=== PATIENT | male | born 1940 | race Caucasian/White ===

== ENCOUNTER 2016-09-06 23:17 | Inpatient (IN) | payer OTHER ==
[~2016-09-06] VITALS: Ht 188 cm; Wt 101.3 kg
[~2016-09-06 23:17] MED LIST: ALLO300T2 PO; ASPI81TA28 PO; CHOL100027 PO; CRS20 PO; FURO40TA3 PO; HYDR-5688 PO; IPRA1AER2 INH; ISOS60TA25 PO; METO-217 PO; MONT1TAB3 PO; NRN300 PO; NSNN50; PRD5 PO; RANI150C4 PO; ULT50X PO; WARF2TAB8 PO
[2016-09-06] MEDS ORDERED: SODIUM CHLORIDE 0.9% 1000ML 1,000 ML IV STA (23:47)
[2016-09-07] VITALS (17 sets, daily range): BP systolic 110–156; BP diastolic 65–87; PULSE 69–85; TEMP 36.3–36.9; O2SAT 91–96; Ht 188 cm; Wt 101.3 kg
[2016-09-07 00:03] LABS: HEMATOCRIT 40.5 % (42-52); MEAN CORPUSCULAR HEMOGLOBIN 28.9 pg (25-34); MEAN CORPUSCULAR HGB CONC 33.6 g/dl (32-36); RED BLOOD COUNT 4.71 M/uL (4.7-6.1)
[2016-09-07 00:05] LABS: ISTAT CREATININE 1.3 mg/dl (0.6-1.3); ISTAT HEMOGLOBIN 13.3 g/dl (14.0-18.0); ISTAT IONIZED CALCIUM 1.2 mmol/l (1.12-1.32)
[2016-09-07] MEDS ORDERED: GABA800T PO (00:14)
[2016-09-07 00:15] LABS: URINE APPEARANCE CLEAR (CLEAR); URINE BILIRUBIN NEG (NEG); URINE COLOR YELLOW; URINE EPITHELIAL CELL AUTO >30 /lpf (0-5); URINE NITRITE NEG (NEG); URINE PH 6.5 (4.5-7.5); URINE SPECIFIC GRAVITY 1.015 (1.000-1.030); UROBILINOGEN NEG (NEG); ZZUR CULT IF INDIC CLEAN CATCH NO
[2016-09-07] MEDS ORDERED: OPTIRAY 320 IV PRN (00:15)
[2016-09-07] MEDS ORDERED: GABA-113 PO (00:18)
[2016-09-07 00:20] LABS: MANUAL MICROSCOPIC REQUIRED? NO; REVIEW REQ? YES
[2016-09-07 00:23] LABS: MEAN PLATELET VOLUME 9.9 fL (7.4-10.4); PLATELET COUNT 99 K/uL (130-400)
[2016-09-07 00:24] LABS: BUN/CREATININE RATIO 15.9 (10-20); CALCIUM 8.9 mg/dl (8.5-10.1); COMPLETE YES; CREATININE 1.4 mg/dl (0.60-1.40); EOS % 0.6 %; IG% 0.5 %; MONO % 8.9 %; PLT ESTIMATE DECREASED; POTASSIUM 3.5 mmol/L (3.5-5.1)
[2016-09-07 00:30] LABS: CKMB/CK RATIO 2.4 (0-3.0)
[2016-09-07 01:56] LABS: INR 1.7 (0.9-1.1); PARTIAL THROMBOPLASTIN RATIO 1.4; PROTHROMBIN TIME (PATIENT) 18.7 SECONDS (9.0-12.0)
[2016-09-07] MEDS ORDERED: CEFOXITIN SOD 2 GM VIAL IV STA (03:50)
[2016-09-07] MEDS ORDERED: ACETAMINOPHEN 325 MG TAB PO PRN ×2 (04:45→14:30)
[2016-09-07] MEDS ORDERED: MoRPHine SULFATE 2 MG/ML CARP IV PRN (04:45)
[2016-09-07] MEDS ORDERED: ONDANSETRON INJ 2 MG/ML 2 ML VIAL IV PRN ×2 (04:45→12:15)
[2016-09-07] MEDS ORDERED: MAGNESIUM HYDROXIDE SUSP 30 ML UDC PO PRN (04:45)
[2016-09-07] MEDS ORDERED: ALUMINUM/MAGNESIUM/SIMETH (MAALOX MAX) 30 ML UDC PO PRN (04:45)
[2016-09-07] MEDS ORDERED: POLYETHYLENE (MIRALAX) 17 GM PACK PO PRN (04:45)
--- NOTE | 2016-09-07 04:50 | History and Physical ---
History & Physical Date & Time of Service: Sep 07, 2016 at 04:40 Chief Complaint: Pain In Stomach Primary Care Physician: Rasheed Wiseman M.D. History of Present Illness Source: patient, clinic records, hospital records This is a 76 year old male with PMH of CAD s/p stents, hx. of complete heart block s/p PPM, hx. of atrial fibrillation on anticoagulation, interstitial lung disease on chronic prednisone, HTN presents with severe epigastric and right upper quadrant abdominal pain that began at about 5PM on 09/06/16; after eating a meal; states that the pain was very severe; he tried to change positions for improvement, but it did not work; to the point where he had to come to the hospital; on the way to the hospital, he states that the pain started subsiding on its own; upon presentation to the ER, his pain had subsided completely; lab work showed an increase in his lipase, RUQ U/S was done; which showed probably acute cholecystitis. Patient feels much better currently, with no symptoms to note. Past Medical/Surgical History Medical Problems: (1) Abdominal aortic aneurysm Status: Chronic (2) Benign hypertension Status: Chronic (3) CKD (chronic kidney disease), stage III Status: Chronic (4) Coronary artery disease Permanent Comment: CABG 1990, PCI 2010, echo 07/16/13 LVEF 55-60%, neg nuclear stress 10/02/13 Status: Chronic (5) Diverticular disease of colon Status: Chronic (6) Diverticulitis Status: Resolved (7) Dyslipidemia Status: Chronic (8) Gout Status: Chronic (9) History of DVT of lower extremity Status: Chronic (10) Osteoarthritis Status: Chronic (11) Pacemaker Status: Chronic (12) Spinal stenosis of lumbar region Status: Chronic Surgical Problems: (1) Hx of decompressive lumbar laminectomy Permanent Comment: Dr. Monique 11/28/13 Status: Chronic (2) Status post cardiac catheterization Permanent Comment: 2010 Status: Chronic (3) Status post cardiac pacemaker procedure Status: Chronic (4) Status post coronary artery bypass grafting Permanent Comment: 1997 Status: Chronic (5) Status post coronary artery stent placement Status: Chronic Family History FH: asthma FATHER FH: coronary artery disease FATHER BROTHER FH: pancreatic cancer MOTHER Social History Smoking Status: Never Smoker Marital Status: Occupational Status: retired Immunizations History of Influenza Vaccine: Yes History of Tetanus Vaccine?: Yes History of Pneumococcal: Yes History of Hepatitis B Vaccine: Yes Allergies Coded Allergies: No Known Allergies (Verified , 09/07/16) Home Medications Scheduled Allopurinol (Zyloprim), 300 MG PO DAILY Aspirin (Aspirin Ec), 81 MG PO m/w/ Cholecalciferol (Vitamin D 1000 Unit), 2,000 INTER.UNIT PO DAILY Furosemide (Lasix), 20 MG PO DAILY Gabapentin (Neurontin), 300 MG PO TID Ipratropium-Albuterol (Combivent Respimat), 1 PUFFS INH QID Isosorbide Mononitrate Ext Rel (Imdur Ext Rel), 60 MG PO QAM Metoprolol Succinate (Toprol Xl), 25 MG PO HS Montelukast Sodium (Singulair), 10 MG PO DAILY Prednisone (Prednisone), 2.5 MG PO DAILY Ranitidine Hcl (Ranitidine Hcl), 150 MG PO HS Rosuvastatin Calcium (Crestor), 40 MG PO HS Warfarin Sod (Jantoven), 2 MG PO DAILY Review of Systems Constitutional: No chills, No fever, No weakness Respiratory: No cough, No dyspnea on exertion, No shortness of breath, No sputum Cardiovascular: No chest pain, No edema, No palpitations Abdomen: + pain (RUQ/epigastric; subsiding), No GI bleeding, No constipation, No diarrhea, No nausea, No vomiting Genitourinary - Male: No dysuria, No hematuria, No urinary frequency, No urinary urgency Neurologic: No numbness/tingling Psychiatric: No depression symptoms Endocrine: No fatigue Hematologic / Lymphatic: No abnormal bleeding/bruising Integumentary: No rash Allergic / Immunologic: No environmental allergies, No seasonal allergies Physical Exam Vital Signs Date Time Temp Pulse Resp B/P Pulse Ox O2 Delivery O2 Flow Rate FiO2 09/07/16 03:46 73 16 115/69 97 Room Air 09/07/16 02:18 78 16 119/68 96 Room Air 09/07/16 00:45 72 16 120/74 96 Room Air 09/06/16 23:50 72 09/06/16 23:30 36.4 76 20 116/72 94 Room Air General Appearance: no apparent distress Head: normocephalic, atraumatic Eyes: normal inspection ENT: hearing grossly normal Neck: supple Respiratory/Chest: lungs clear, normal breath sounds, no respiratory distress, no accessory muscle use, + pertinent finding (+pacemaker, left chest wall) Cardiovascular: regular rate, rhythm, no edema, no murmur Abdomen/GI: normal bowel sounds, soft, + tenderness (mild tenderness to deep palpation) Extremities/Musculoskelatal: normal capillary refill, no pedal edema Neurologic/Psych: no motor/sensory deficits, alert, normal mood/affect Skin: normal color Lymphatic: no adenopathy Diagnostics Laboratory Results Results Past 24 Hours Test 09/06/16 23:45 09/06/16 23:48 Range/Units White Blood Count 6.50 4.8-10.8 K/uL Red Blood Count 4.71 4.7-6.1 M/uL Hemoglobin 13.6 14.0-18.0 g/dL Hematocrit 40.5 42-52 % Mean Corpuscular Volume 86.0 80-100 fL Mean Corpuscular Hemoglobin 28.9 25-34 pg Mean Corpuscular Hemoglobin Concent 33.6 32-36 g/dl Platelet Count 99 130-400 K/uL Mean Platelet Volume 9.9 7.4-10.4 fL Neutrophils (%) (Auto) 70.0 % Lymphocytes (%) (Auto) 20.0 % Monocytes (%) (Auto) 8.9 % Eosinophils (%) (Auto) 0.6 % Basophils (%) (Auto) 0.0 % Neutrophils # (Auto) 4.55 1.4-6.5 K/uL Lymphocytes # (Auto) 1.30 1.2-3.4 K/uL Monocytes # (Auto) 0.58 0.11-0.59 K/uL Eosinophils # (Auto) 0.04 0-0.5 K/uL Basophils # (Auto) 0.00 0-0.2 K/uL RDW Standard Deviation 51.5 36.4-46.3 fL RDW Coefficient of Variation 16.4 11.5-14.5 % Immature Granulocyte % (Auto) 0.5 % Immature Granulocyte # (Auto) 0.03 0.00-0.02 K/uL Platelet Estimate DECREASED Prothrombin Time 18.7 9.0-12.0 SECONDS Prothromb Time International Ratio 1.7 0.9-1.1 Activated Partial Thromboplast Time 35.3 21.0-31.0 SECONDS Partial Thromboplastin Ratio 1.4 Urine Color YELLOW Urine Appearance CLEAR CLEAR Urine pH 6.5 4.5-7.5 Urine Specific [place] 1.015 1.000-1.030 Urine Protein 1+ NEG Urine Glucose (UA) NEG NEG Urine Ketones NEG NEG Urine Occult Blood TRACE NEG Urine Nitrite NEG NEG Urine Bilirubin NEG NEG Urine Urobilinogen NEG NEG Urine Leukocyte Esterase NEG NEG Urine WBC (Auto) 1-5 0-5 /hpf Urine RBC (Auto) 0-4 0-4 /hpf Urine Hyaline Casts (Auto) 1-5 0-5 /lpf Urine Epithelial Cells (Auto) >30 0-5 /lpf Urine Bacteria (Auto) NEG NEG Urine Renal Epithelial Cells 0-5 /lpf Sodium Level 143 136-145 mmol/L Potassium Level 3.5 3.5-5.1 mmol/L Chloride Level 104 98-107 mmol/L Carbon Dioxide Level 29 21-32 mmol/L Anion Gap 10.0 20.0 16-25 mmol/L Blood Urea Nitrogen 22 7-18 mg/dl Creatinine 1.40 0.60-1.40 mg/dl Est Creatinine Clear Calc Drug Dose 56.2 ml/min Estimated GFR () 55.8 Estimated GFR (Non- 48.1 BUN/Creatinine Ratio 15.9 10-20 Random Glucose 200 70-99 mg/dl Calcium Level 8.9 8.5-10.1 mg/dl Total Bilirubin 1.0 0.2-1 mg/dl Direct Bilirubin 0.4 0-0.2 mg/dl Aspartate Amino Transf (AST/SGOT) 23 15-37 U/L Alanine Aminotransferase (ALT/SGPT) 24 12-78 U/L Alkaline Phosphatase 66 45-117 U/L Total Creatine Kinase 174 39-308 U/L Creatine Kinase MB 4.2 0.5-3.6 ng/ml Creatine Kinase MB Ratio 2.4 0-3.0 Troponin I 0.018 0-0.045 ng/ml Total Protein 7.0 6.4-8.2 gm/dl Albumin 3.5 3.4-5.0 gm/dl Lipase 5554 73-393 U/L Bedside Hemoglobin 13.3 14.0-18.0 g/dl Bedside Hematocrit 39 42-52 % Bedside Sodium 141 135-144 mEq/L Bedside Potassium 3.4 3.3-5.0 mEq/L Bedside Chloride 100 101-112 mEq/L Bedside Total CO2 26 24-31 mEq/l Bedside Blood Urea Nitrogen 23 7-18 mg/dl Bedside Creatinine 1.3 0.6-1.3 mg/dl Bedside Glucose (other) 199 70-99 mg/dl Bedside Ionized Calcium (Brandi) 1.20 1.12-1.32 mmol/l Diagnostic Radiology RUQ U/S = concerning for acute cholecystitis EKG ventricularly paced rhythm Impression Assessment and Plan This is a 76 year old male with PMH of CAD s/p stents, hx. of complete heart block s/p PPM, hx. of atrial fibrillation on anticoagulation, interstitial lung disease on chronic prednisone, HTN presents with severe epigastric and right upper quadrant abdominal pain Acute Gallstone Pancreatitis Acute Cholecystitis -->likely from a gallstone in the CBD; which now seems to have passed -->RUQ U/S showing probably acute cholecystitis -->lipase > 5000 -->severe pain has now subsided without medication -->will keep patient NPO for now -->IVFs -->received abx. in the ER -->general surgery consultation for further input Hx. of Atrial Fibrillation s/p PPM -->hold Coumadin for now -->INR = 1.7; will await gen surg input prior to reversing this -->hold ASA for now CAD s/p stenting -->continue b-emerson, statin -->hold ASA for now secondary to poss. surgery HTN -->BP controlled, continue home medications DVT ppx -->SCDs FULL CODE VTE Prophylaxis VTE Risk Assessment Done? Y/N: Yes Risk Level: High
[2016-09-07] MEDS: SODIUM CHLORIDE 0.9% 1000ML 1,000 ML IV SCH ×2 (05:34→15:30)
--- NOTE | 2016-09-07 06:45 | EMERGENCY ROOM VISIT NOTE ---
History Report prepared by Sheri: Eliud Sanchez Under the Supervision of: Dr. Omid Baker M.D. First contact with patient: 23:44 Chief Complaint: ABDOMINAL PAIN Stated Complaint: PAIN IN STOMACH History of Present Illness The patient is a 76 year old male who presents to the Emergency Room with complaints of improving pain of the right middle abdomen since earlier tonight. The patient was laying down after dinner when the pain began. He was also reportedly nauseous and diaphoretic en route which are now both resolved. The patient denies chest pain. He has never had pain like this before. The patient was in the ED with shingles one month ago over the same general area, however the pain was different. He had a CT scan at that time. The patient has a history of aortic aneurysm. He had an appointment with his physician this morning, which was rescheduled for October. Source of History: patient Onset: tonight Position: abdomen (right middle) Timing: other (improving) Modifying Factors (Worsening): other (laying down) Associated Symptoms: + diaphoresis, + nausea, No chest pain Review of Systems See HPI for pertinent positives & negatives. A total of 10 systems reviewed and were otherwise negative. Past Medical & Surgical Medical Problems: (1) Abdominal aortic aneurysm (2) Acute gallstone pancreatitis (3) Benign hypertension (4) CKD (chronic kidney disease), stage III (5) Coronary artery disease (6) Diverticular disease of colon (7) Diverticulitis (8) Dyslipidemia (9) Gout (10) History of DVT of lower extremity (11) Osteoarthritis (12) Pacemaker (13) Spinal stenosis of lumbar region Surgical Problems: (1) Hx of decompressive lumbar laminectomy (2) Status post cardiac catheterization (3) Status post cardiac pacemaker procedure (4) Status post coronary artery bypass grafting (5) Status post coronary artery stent placement Family History FH: asthma FATHER FH: coronary artery disease FATHER BROTHER FH: pancreatic cancer MOTHER Social History Smoking Status: Never Smoker Alcohol Use: occasionally Marital Status: Occupation Status: retired Current/Historical Medications Scheduled Allopurinol (Zyloprim), 300 MG PO DAILY Aspirin (Aspirin Ec), 81 MG PO // Cholecalciferol (Vitamin D 1000 Unit), 2,000 INTER.UNIT PO DAILY Furosemide (Lasix), 20 MG PO DAILY Gabapentin (Neurontin), 300 MG PO TID Ipratropium-Albuterol (Combivent Respimat), 1 PUFFS INH QID Isosorbide Mononitrate Ext Rel (Imdur Ext Rel), 60 MG PO QAM Metoprolol Succinate (Toprol Xl), 25 MG PO HS Montelukast Sodium (Singulair), 10 MG PO DAILY Prednisone (Prednisone), 2.5 MG PO DAILY Ranitidine Hcl (Ranitidine Hcl), 150 MG PO HS Rosuvastatin Calcium (Crestor), 40 MG PO HS Warfarin Sod (Jantoven), 2 MG PO DAILY Allergies Coded Allergies: No Known Allergies (Verified , 09/07/16) Physical Exam Vital Signs Date Time Temp Pulse Resp B/P Pulse Ox O2 Delivery O2 Flow Rate FiO2 09/07/16 03:46 73 16 115/69 97 Room Air 09/07/16 02:18 78 16 119/68 96 Room Air 09/07/16 00:45 72 16 120/74 96 Room Air 09/06/16 23:50 72 09/06/16 23:30 36.4 76 20 116/72 94 Room Air Physical Exam GENERAL: Patient is well appearing and in mild distress. HEENT: No acute trauma, normocephalic atraumatic, mucous membranes moist, no nasal congestion, no scleral icterus. NECK: No stridor, no adenopathy, no meningismus, trachea is midline. LUNGS: No dyspnea. Clear to auscultation and equal bilaterally. No wheeze, no rhonchi. HEART: Regular rate and rhythm. No murmurs, rubs, gallops appreciated. ABDOMEN: Soft, nontender, bowel sounds positive, no masses appreciated, no peritonitis. BACK: No midline tenderness, no CVA tenderness EXTREMITIES: Normal motion all extremities, no cyanosis, no edema. NEUROLOGIC: Alert and oriented, no acute motor or sensory deficits, no focal weakness, cranial nerves grossly intact. SKIN: No rash, no jaundice, no diaphoresis. Medical Decision & Procedures ER Provider Diagnostic Interpretation: CT and US radiology results and stated below per my review and radiologist interpretation: CTA Chest: Compared to 05/03/16. No PE or aortic dissection. Redemonstrated cardiomegaly and CAD with pacer device. Right greater than left lung interstitial thickening again noted. Improved nodular infiltrates in the interval. Redemonstrated 4 mm right middle lobe nodule on series 3 image 33. Stable enlarged pretracheal lymph node. CTA Abdomen & Pelvis: Compared to 07/25/16. There is a stable 4 cm fusiform infrarenal abdominal aortic aneurysm. No evidence of rupture. Interval development of a hazy gallbladder wall, potentially edematous. No radiopaque stone. Consider US. Renal atrophy and scarring without obstruction. Diverticulosis coli without diverticulitis. Normal appendix. No bowel obstruction. Radiologist: Brandon Davila MD US RUQ: Mildly distended gallbladder with sludge and non-shadowing stones. Marked gallbladder wall thickening measuring up to 7.2 mm with pericholecystic fluid. Negative sonographic [place] sign. Findings are concerning for acute cholecystitis. The common bile duct is within normal limits measuring up to 4.6 mm. Mild hepatomegaly with slight increased echogenicity of the liver suggesting hepatic steatosis. The pancreas was not visualized secondary to bowel gas. Echogenic lesion within the right kidney measured 11 mm. This was not appreciated on recent CT and is of indeterminate clinical significance. Echogenic lesion with shadowing seen medial to the gallbladder which may represent calcified lymph node, vascular calcification or intraluminal contents within bowel. Radiologist: Kashmir Da Silva MD. Laboratory Results Test 09/06/16 23:45 09/06/16 23:48 RDW Standard Deviation 51.5 fL (36.4-46.3) RDW Coefficient of Variation 16.4 % (11.5-14.5) White Blood Count 6.50 K/uL (4.8-10.8) Red Blood Count 4.71 M/uL (4.7-6.1) Hemoglobin 13.6 g/dL (14.0-18.0) Hematocrit 40.5 % (42-52) Mean Corpuscular Volume 86.0 fL (80-100) Mean Corpuscular Hemoglobin 28.9 pg (25-34) Mean Corpuscular Hemoglobin Concent 33.6 g/dl (32-36) Platelet Count 99 K/uL (130-400) Mean Platelet Volume 9.9 fL (7.4-10.4) Neutrophils (%) (Auto) 70.0 % Lymphocytes (%) (Auto) 20.0 % Monocytes (%) (Auto) 8.9 % Eosinophils (%) (Auto) 0.6 % Basophils (%) (Auto) 0.0 % Neutrophils # (Auto) 4.55 K/uL (1.4-6.5) Lymphocytes # (Auto) 1.30 K/uL (1.2-3.4) Monocytes # (Auto) 0.58 K/uL (0.11-0.59) Eosinophils # (Auto) 0.04 K/uL (0-0.5) Basophils # (Auto) 0.00 K/uL (0-0.2) Immature Granulocyte % (Auto) 0.5 % Immature Granulocyte # (Auto) 0.03 K/uL (0.00-0.02) Platelet Estimate DECREASED Activated Partial Thromboplast Time 35.3 SECONDS (21.0-31.0) Partial Thromboplastin Ratio 1.4 Urine Color YELLOW Urine Appearance CLEAR (CLEAR) Urine pH 6.5 (4.5-7.5) Urine Specific [place] 1.015 (1.000-1.030) Urine Protein 1+ (NEG) Urine Glucose (UA) NEG (NEG) Urine Ketones NEG (NEG) Urine Occult Blood TRACE (NEG) Urine Nitrite NEG (NEG) Urine Bilirubin NEG (NEG) Urine Urobilinogen NEG (NEG) Urine Leukocyte Esterase NEG (NEG) Urine WBC (Auto) 1-5 /hpf (0-5) Urine RBC (Auto) 0-4 /hpf (0-4) Urine Hyaline Casts (Auto) 1-5 /lpf (0-5) Urine Epithelial Cells (Auto) >30 /lpf (0-5) Urine Bacteria (Auto) NEG (NEG) Urine Renal Epithelial Cells /lpf (0-5) Est Creatinine Clear Calc Drug Dose 56.2 ml/min Direct Bilirubin 0.4 mg/dl (0-0.2) Total Creatine Kinase 174 U/L (39-308) Creatine Kinase MB 4.2 ng/ml (0.5-3.6) Creatine Kinase MB Ratio 2.4 (0-3.0) Troponin I 0.018 ng/ml (0-0.045) Bedside Hemoglobin 13.3 g/dl (14.0-18.0) Bedside Hematocrit 39 % (42-52) Bedside Sodium 141 mEq/L (135-144) Bedside Potassium 3.4 mEq/L (3.3-5.0) Bedside Chloride 100 mEq/L (101-112) Bedside Total CO2 26 mEq/l (24-31) Bedside Blood Urea Nitrogen 23 mg/dl (7-18) Bedside Creatinine 1.3 mg/dl (0.6-1.3) Bedside Glucose (other) 199 mg/dl (70-99) Bedside Ionized Calcium (Brandi) 1.20 mmol/l (1.12-1.32) Laboratory results as reviewed by me. Medications Administered Medications (Trade) Dose Ordered Sig/Melita Route Start Time Stop Time Status Last Admin Dose Admin Sodium Chloride (Nss 1000ml) 1,000 ml @ 999 mls/hr Q1H1M STAT IV 09/06/16 23:47 09/07/16 00:47 DC 09/07/16 00:13 999 MLS/HR Cefoxitin Sodium (Mefoxin IV) 2,000 mg NOW STAT IV 09/07/16 03:50 09/07/16 03:51 DC 09/07/16 04:21 2,000 MG ECG Indication: abdominal pain Rate (beats per minute): 83 Rhythm: other (ventricular paced) Findings: no acute ischemic change, no ectopy ED Course 2344: The patient was evaluated in room A11b. A complete history and physical exam was performed. 2347: NSS 1000 ml @ 999 mls/hr. 0100: The patient is feeling better. He is stable at this time. 0135: The patient is still feeling alright. 0350: Mefoxin 2000 mg IV. 0355: Checked on the patient. Updated them on the findings. 0402: Discussed the case with Dr. Farias, [facility] [address] Hospitalist. The patient will be evaluated. Medical Decision Differential: Renal Colic, Pyelonephritis, Hydronephrosis, Appendicitis, Diverticulitis, Retroperitoneal Bleed/Infection, Aortic Pathology, MSK, Neurologic Pathology, amongst other pathologies entertained. 76 yr old male arrives with right flank/sided pain associated with nausea, lightheadedness and diaphoresis. Known AAA and given description of severity of symptoms went forward with CTA to rule out dissection/rupture. In mean time Lipase found to be very high though patient states no further symptoms. CT with evidence of GB abnormalities though no other acute injuries. LFTs OK. US shows concerning findings of acute cholecystitis. I suspect this was passed GB stone but given elevated Lipase and his US findings will need to come in for further monitoring and treatment. He is not septic and was stable. Patient comfortable and in no distress throughout ED stay. Consults Time Called: [phone] Consulting Physician: Carly Bravo Hospitalist Returned Call: [phone]: Discussed the case with Carly Bravo. The patient will be evaluated. Impression Primary Impression: Acute cholecystitis Additional Impression: Elevated lipase Scribe Attestation The scribe's documentation has been prepared under my direction and personally reviewed by me in its entirety. I confirm that the note above accurately reflects all work, treatment, procedures, and medical decision making performed by me. Departure Information Dispostion Being Evaluated By Hospitalist Referrals Rasheed Wiseman M.D. (PCP)
--- NOTE | 2016-09-07 07:37 | DIAGNOSTIC IMAGING REPORT ---
ABDOMINAL ULTRASOUND, RIGHT UPPER QUADRANT HISTORY: Right flank pain. Elevated lipase. COMPARISON: CT of the abdomen and pelvis July 25, 2016. FINDINGS: The liver is mildly enlarged and echogenic. No hepatic lesions are identified. There is no biliary ductal dilatation. There is sludge within the gallbladder. There may be nonshadowing stones within the gallbladder. There is moderate gallbladder wall thickening. No sonographic [place] sign was elicited. There is no right hydronephrosis. There is a 1.1 cm echogenic lesion within the upper pole of the right kidney. Incidental note is made of a 2.1 cm shadowing focus medial to the gallbladder which likely reflects a calcified peritoneal body when correlating with CT. The pancreas is obscured. IMPRESSION: 1. Sludge within the gallbladder with possible nonshadowing stones within the gallbladder. Moderate gallbladder wall thickening. The findings raise the possibility of acute cholecystitis. A hepatobiliary scan could be obtained as indicated. No sonographic Freeman's sign. 2. No biliary ductal dilatation. 3. 1.1 cm echogenic right renal lesion. This favors scarring or an angiomyolipoma. Electronically signed by: Chip Garza M.D. 09/07/2016 7:35 AM
--- NOTE | 2016-09-07 07:55 | DIAGNOSTIC IMAGING REPORT ---
CT ANGIOGRAM OF THE CHEST, ABDOMEN, AND PELVIS CLINICAL HISTORY: Chest abdominal pain. Known aortic aneurysm. COMPARISON STUDY: Noncontrast CT scan abdomen pelvis dated 07/25/2016 , outside chest CT May 03, 2016 TECHNIQUE: Before and following the IV administration of 116 mL of Optiray-320, CT angiogram of the chest, abdomen, and pelvis was performed from the thoracic inlet to the proximal femurs. Images are reviewed in the axial, sagittal, and coronal planes. IV contrast was administered without complication. Imaged portions of the thyroid gland are normal in appearance. MIP imaging was performed. CT DOSE: 2590.67 mGy.cm FINDINGS: CHEST: Thoracic aorta: The thoracic aorta is normal in course and caliber, noting standard 3-vessel arch anatomy. No aneurysm or dissection is seen. Pulmonary vasculature: The pulmonary trunk is normal in caliber. There are no filling defects in the main, lobar, or segmental pulmonary branches to suggest pulmonary embolus. HEART: There are postsurgical changes of midline sternotomy. The heart is enlarged. There are coronary artery calcifications. There is evidence for prior coronary artery bypass grafting. Lungs and pleural spaces: There is pulmonary emphysema. There is no lobar consolidation. There is interstitial thickening and septal edema. There is mosaic attenuation the lungs, likely secondary to areas of air trapping. There is a stable 4 mm right middle lobe pulmonary nodule as visualized in image #[id number] Mediastinum: There are enlarged mediastinal lymph nodes. There is a precarinal lymph node measuring 15 mm. Randa: There is no evidence of pathologic hilar adenopathy Axilla: Clear. ABDOMEN AND PELVIS: Liver: The contrast-enhanced liver is normal in size, contour, and attenuation. There is no intrahepatic biliary ductal dilatation. The hepatic veins and portal veins are patent. Gallbladder: There is gallbladder wall thickening/pericholecystic fluid. No calculi are visualized. Clinical correlation regards to acute cholecystitis is recommended. Spleen: Normal in size and attenuation. Pancreas: Unremarkable. Adrenal glands: Unremarkable. Kidneys: Both kidneys demonstrate lobular contours. No solid masses are visualized. There is no hydronephrosis. Bowel: There are no transition zones indicate bowel obstruction. There is extensive colonic diverticulosis. There are no acute peridiverticular inflammatory changes. Peritoneum: There is no intraperitoneal free air or abdominal ascites. Abdominal aorta: Diffuse atheromatous changes are present within the abdominal aorta. There is infrarenal abdominal aortic aneurysm measuring 3.9 cm in maximal diameter. There are no findings to indicate aortic rupture. There is no evidence of superior mesenteric, celiac, or renal artery stenosis. Adenopathy: None. Pelvic viscera: There is mild bladder wall thickening. Skeletal structures: There are postsurgical changes present within the lumbar spine. IMPRESSION: 1. No evidence of thoracic aortic aneurysm or dissection 2. Enlarged precarinal lymph node, unchanged from April 2016 3. Stable 4 mm right middle lobe pulmonary nodule 4. Emphysema and underlying interstitial lung disease. 5. Slight mosaic attenuation of the lungs likely secondary to air-trapping 6. Stable 3.9 cm infrarenal abdominal aortic aneurysm. No evidence of aortic rupture 7. No evidence of bowel obstruction. No evidence of free air 8. Diverticulosis. No evidence of acute diverticulitis 9. Suspected edematous gallbladder wall. Correlate clinically for acute cholecystitis. Gallbladder ultrasonography should be considered in follow-up. Electronically signed by: Jordon Parish M.D. 09/07/2016 7:53 AM
[2016-09-07 08:01] LABS: HEMATOCRIT 36.2 % (42-52); MEAN CELL VOLUME 86.4 fL (80-100); MEAN CORPUSCULAR HEMOGLOBIN 29.1 pg (25-34); MEAN CORPUSCULAR HGB CONC 33.7 g/dl (32-36); RED BLOOD COUNT 4.19 M/uL (4.7-6.1); WHITE BLOOD COUNT 4.14 K/uL (4.8-10.8)
[2016-09-07 08:09] LABS: INR 1.8 (0.9-1.1); PROTHROMBIN TIME (PATIENT) 19.3 SECONDS (9.0-12.0)
[2016-09-07 08:16] LABS: MEAN PLATELET VOLUME 11.7 fL (7.4-10.4); PLATELET COUNT 93 K/uL (130-400)
[2016-09-07 08:30] LABS: BUN/CREATININE RATIO 14.8 (10-20); CALCIUM 8.9 mg/dl (8.5-10.1); CREATININE 1.2 mg/dl (0.60-1.40); POTASSIUM 3.6 mmol/L (3.5-5.1)
[2016-09-07] MEDS: ISOSORBIDE MONONITRATE 60 MG TABCR PO SCH ×2 (09:00→10:17)
[2016-09-07] MEDS: IPRATROPIUM BROMIDE/ALBUTEROL respimat INH INH SCH ×4 (09:00→20:25)
[2016-09-07] MEDS: MONTELUKAST SOD 10 MG TAB PO SCH ×2 (09:00→10:17)
--- NOTE | 2016-09-07 09:04 | Pre-Operative Consultation ---
History General Date of Service: Sep 07, 2016. Stated Complaint: RUQ pain HPI HPI: The patient is a 76 year old male being seen at the request of Dr. Farias for possible acute cholecystitis in the setting of gallstone pancreatitis. He tells me he was told about his gallstones a few years ago when they were incidentally noted on imaging. They had not been causing any trouble at the time. About 1 day ago, he developed severe, constant, intense pain in the RUQ under his ribcage which started directly after eating. This did not radiate to his back, it was a 10/10 in intensity, associated with nausea but no vomiting or diarrhea. It continued to worsen and thus, he came to the ER. While getting in the car, the pain started to subside and has now resolved completely. ER evaluation revealed gallstone pancreatitis with a lipase over 5000 and imaging suggestive of acute cholecystitis. He has an extensive PMH most notable for a fib on coumadin, pacemaker placement for heart block ([facility]), prednisone usage for interstitial lung disease. He has undergone a quadruple CABG in the past. Has hypertension. Problem List Medical Problems: (1) Acute cholecystitis Status: Acute (2) Elevated lipase Status: Acute (3) Flank pain Status: Acute (4) Herpes zoster Status: Acute Medical & Surgical History Past Medical History: coronary artery disease, deep vein thrombosis, heart attack, hypertension, osteoarthritis, other (interstitial lung disease) Past Surgical History: angioplasty, coronary bypass surgery, hernia repair ( groin), orthopedic surgery (left elbow), pacemaker (for heart block) Family History Family History: no family history of gallbladder disease Social History Hx Tobacco Use In Past Year?: No (Quit 40 years ago) Smoking Status: Never Smoker Alcohol: occasionally Marital status: Occupation status: retired Immunizations Have You Had Influenza Vaccine: Yes Have You Had Tetanus Vaccine: Yes History of Pneumococcal: Yes History Hepatitis B Vaccine: Yes Allergies Allergies: Coded Allergies: No Known Allergies (Verified , 09/07/16) Medications Current Inpatient Medications Current Inpatient Medications Medications (Trade) Dose Ordered Sig/Melita Route Start Time Stop Time Status Last Admin Dose Admin Ioversol (Optiray 320) 100 ml UD PRN IV 09/07/16 00:15 09/11/16 00:14 Acetaminophen (Tylenol Tab) 650 mg Q4H PRN PO 09/07/16 04:45 10/07/16 04:44 Al Hydrox/Mg Hydrox/Simethicone (Maalox Max Susp) 15 ml Q4H PRN PO 09/07/16 04:45 10/07/16 04:44 Magnesium Hydroxide (Milk Of Magnesia Susp) 30 ml Q6H PRN PO 09/07/16 04:45 10/07/16 04:44 Polyethylene (Miralax Powder Packet) 17 gm DAILY PRN PO 09/07/16 04:45 10/07/16 04:44 Ondansetron HCl 4 mg 4 mg Q6H PRN IV 09/07/16 04:45 10/07/16 04:44 Sodium Chloride (Nss 1000ml) 1,000 ml @ 100 mls/hr Q10H IV 09/07/16 04:45 10/07/16 04:44 09/07/16 05:34 100 MLS/HR Morphine Sulfate (MoRPHine SULFATE INJ) 2 mg Q4 PRN IV 09/07/16 04:45 09/21/16 04:44 Albuterol/ Ipratropium (Combivent Respimat Inh) 1 puffs QID INH 09/07/16 09:00 10/07/16 08:59 Isosorbide Mononitrate (Imdur Ext Rel Tab) 60 mg QAM PO 09/07/16 09:00 10/07/16 08:59 Metoprolol Succinate (Toprol Xl Tab) 25 mg HS PO 09/07/16 21:00 10/07/16 20:59 Montelukast Sodium (Singulair Tab) 10 mg DAILY PO 09/07/16 09:00 10/07/16 08:59 Prednisone (PredniSONE TAB) 2.5 mg DAILY PO 09/07/16 09:00 10/07/16 08:59 Rosuvastatin Calcium (Crestor Tab) 40 mg HS PO 09/07/16 21:00 10/07/16 20:59 Review of Systems Review of Systems Constitutional: no symptoms reported Eyes: reports: no symptoms ENT: reports: no symptoms reported Cardiovascular: reports: no symptoms reported Respiratory: reports: no symptoms reported Gastrointestinal: see HPI Genitourinary - Male: reports: no symptoms Musculoskeletal: no symptoms reported Integumentary: no symptoms reported Neurologic: reports: no symptoms Psychiatric: reports: no symptoms Endocrine: no symptoms Hematologic / Lymphatic: other (on coumadin) Physical Exam Physical Exam General Appearance: + WD/WN, No distress Ears, Nose, Throat: + normal ENT inspection Neck: No abnormal inspection, No tracheal deviation Respiratory: No abnormal breath sounds, No accessory muscle use, No chest tenderness, No decreased breath sounds, No respiratory distress Cardiovascular: + other (pacemaker in place left upper chest), No JVD, No abnormal rate (sounds RRR currently) Abdomen: + tenderness (mild RUQ, no marshall's sign), No abnormal bowel sounds, No distension, No hepatomegaly, No hernia, No rebound Extremities: No abnormal range of motion, No deformity Neurologic/Psychiatric: No abnormal poultry vaccinator II-XII, No decreased LOC Skin Characteristics: No abnormal color Diagnostics Labs Labs Results Past 24 Hours Test 09/06/16 23:45 09/06/16 23:48 09/07/16 07:10 Range/Units White Blood Count 6.50 4.14 4.8-10.8 K/uL Red Blood Count 4.71 4.19 4.7-6.1 M/uL Hemoglobin 13.6 12.2 14.0-18.0 g/dL Hematocrit 40.5 36.2 42-52 % Mean Corpuscular Volume 86.0 86.4 80-100 fL Mean Corpuscular Hemoglobin 28.9 29.1 25-34 pg Mean Corpuscular Hemoglobin Concent 33.6 33.7 32-36 g/dl Platelet Count 99 93 130-400 K/uL Mean Platelet Volume 9.9 11.7 7.4-10.4 fL Neutrophils (%) (Auto) 70.0 % Lymphocytes (%) (Auto) 20.0 % Monocytes (%) (Auto) 8.9 % Eosinophils (%) (Auto) 0.6 % Basophils (%) (Auto) 0.0 % Neutrophils # (Auto) 4.55 1.4-6.5 K/uL Lymphocytes # (Auto) 1.30 1.2-3.4 K/uL Monocytes # (Auto) 0.58 0.11-0.59 K/uL Eosinophils # (Auto) 0.04 0-0.5 K/uL Basophils # (Auto) 0.00 0-0.2 K/uL RDW Standard Deviation 51.5 52.4 36.4-46.3 fL RDW Coefficient of Variation 16.4 16.5 11.5-14.5 % Immature Granulocyte % (Auto) 0.5 % Immature Granulocyte # (Auto) 0.03 0.00-0.02 K/uL Platelet Estimate DECREASED Prothrombin Time 18.7 19.3 9.0-12.0 SECONDS Prothromb Time International Ratio 1.7 1.8 0.9-1.1 Activated Partial Thromboplast Time 35.3 21.0-31.0 SECONDS Partial Thromboplastin Ratio 1.4 Urine Color YELLOW Urine Appearance CLEAR CLEAR Urine pH 6.5 4.5-7.5 Urine Specific [place] 1.015 1.000-1.030 Urine Protein 1+ NEG Urine Glucose (UA) NEG NEG Urine Ketones NEG NEG Urine Occult Blood TRACE NEG Urine Nitrite NEG NEG Urine Bilirubin NEG NEG Urine Urobilinogen NEG NEG Urine Leukocyte Esterase NEG NEG Urine WBC (Auto) 1-5 0-5 /hpf Urine RBC (Auto) 0-4 0-4 /hpf Urine Hyaline Casts (Auto) 1-5 0-5 /lpf Urine Epithelial Cells (Auto) >30 0-5 /lpf Urine Bacteria (Auto) NEG NEG Urine Renal Epithelial Cells 0-5 /lpf Sodium Level 143 145 136-145 mmol/L Potassium Level 3.5 3.6 3.5-5.1 mmol/L Chloride Level 104 112 98-107 mmol/L Carbon Dioxide Level 29 23 21-32 mmol/L Anion Gap 10.0 20.0 10.0 3-11 mmol/L Blood Urea Nitrogen 22 18 7-18 mg/dl Creatinine 1.40 1.20 0.60-1.40 mg/dl Est Creatinine Clear Calc Drug Dose 56.2 65.5 ml/min Estimated GFR () 55.8 67.2 Estimated GFR (Non- 48.1 58.0 BUN/Creatinine Ratio 15.9 14.8 10-20 Random Glucose 200 109 70-99 mg/dl Calcium Level 8.9 8.9 8.5-10.1 mg/dl Total Bilirubin 1.0 0.6 0.2-1 mg/dl Direct Bilirubin 0.4 0-0.2 mg/dl Aspartate Amino Transf (AST/SGOT) 23 21 15-37 U/L Alanine Aminotransferase (ALT/SGPT) 24 21 12-78 U/L Alkaline Phosphatase 66 54 45-117 U/L Total Creatine Kinase 174 39-308 U/L Creatine Kinase MB 4.2 0.5-3.6 ng/ml Creatine Kinase MB Ratio 2.4 0-3.0 Troponin I 0.018 0-0.045 ng/ml Total Protein 7.0 5.9 6.4-8.2 gm/dl Albumin 3.5 2.9 3.4-5.0 gm/dl Lipase 5554 1305 73-393 U/L Bedside Hemoglobin 13.3 14.0-18.0 g/dl Bedside Hematocrit 39 42-52 % Bedside Sodium 141 135-144 mEq/L Bedside Potassium 3.4 3.3-5.0 mEq/L Bedside Chloride 100 101-112 mEq/L Bedside Total CO2 26 24-31 mEq/l Bedside Blood Urea Nitrogen 23 7-18 mg/dl Bedside Creatinine 1.3 0.6-1.3 mg/dl Bedside Glucose (other) 199 70-99 mg/dl Bedside Ionized Calcium (Barndi) 1.20 1.12-1.32 mmol/l Globulin 3.0 2.5-4.0 gm/dl Albumin/Globulin Ratio 1.0 0.9-2 Lab Interpretation Lab Interpretation: labs were reviewed Diagnostic Radiology Diagnostic Radiology RUQ U/S showed gallstones/ sludge with findings c/w acute cholecystitis. Normal CBD size. Impression Assessment and Plan Assessment and Plan 76 yr old man with chronic steroid use, on coumadin with INR 1.8 admitted with gallstone pancreatitis and possible acute cholecystitis. His pain has resolved and lipase is down to just over 1000 today. Discussed my recommendation for laparoscopic cholecystectomy with IOC, possible open. Explained that with his medical comorbidities, it is quite possible he is masking an infected, ugly gallbladder. Possible need for open procedure with attendant increase in hospital stay (3-4 days) and recovery (4 wk minimum) reviewed. Discussed possible drain placement if concern for potential bile leak. Discussed potential need for ERCP following procedure if bile leak, retained stone found on IOC, or unable to do IOC and manifesting with signs of retained stone later. Risks of diarrhea, intolerance to foods, bleeding (increased due to need for anticoagulation afterwards), and infection also discussed. Consent was signed. I would like to take him to OR today. Will need 1 unit FFP as INR 1.8 (would prefer less than 1.6). Also, we need to find out what type of pacemaker he has. EKG shows a v paced rhythm. Attempting to page Dr. Farias and Dr. Brar (concrete stone finisher for [facility] cardiology).
--- NOTE | 2016-09-07 09:52 | Progress Note ---
Progress Note Cardiology attending: full consult dictated patient is a moderate risk for adverse perioperative cardiovascular event, pt is accepting or risk no need to delay cholecystectomy from cardiac standpoint will follow post-operatively
--- NOTE | 2016-09-07 11:28 | CARDIOLOGY CONSULTATION ---
DATE OF CONSULTATION: 09/07/2016 CONSULTATION REQUESTED BY: Dr. Denney. REASON FOR CONSULTATION: Preoperative risk assessment. HISTORY OF PRESENT ILLNESS: Mr. Gramajo is a very pleasant 76-year-old gentleman who normally follows with Miki Cunningham PA-C, of our cardiology practice. He presented to [facility] Emergency Department on the evening of 09/06/2016 with a complaint of severe abdominal pain. The patient states he was in his normal state of health yesterday when he ate dinner, afterwards he sat down, developed severe sharp stabbing right upper quadrant pain. His family brought him to [facility] where he was found to have acute cholecystitis and he was timely scheduled for cholecystectomy today. Otherwise, he states he is feeling well and his abdominal pain has resolved and he denies experiencing any chest pain. He was recently seen in the cardiology clinic on 08/30/2016 and at that time as well he denied any cardiac complaints. The patient is very active. He actually carries wood on a regular basis without issue. He denies any chest pain, shortness of breath, palpitations, lightheadedness, dizziness or syncope. He has been compliant with his medications and taking them as directed. PAST SURGICAL HISTORY: 1. Coronary bypass grafting surgery x3 with followup PCIs to vein grafts. 2. Medtronic dual-chamber permanent pacemaker placement. 3. Cataract surgery. 4. Hernia repair. 5. Spinal fusion. MEDICAL ILLNESSES: 1. Coronary artery disease, status post CABG and further PCI. 2. Persistent atrial fibrillation, rate controlled on chronic Coumadin therapy. 3. History of complete heart block, status post permanent pacemaker placement. 4. Abdominal aortic aneurysm. 5. Interstitial lung disease. 6. Hypertension. 7. Dyslipidemia. FAMILY HISTORY: Noncontributory. SOCIAL HISTORY: The patient is a former smoker, quit over 30 years ago. Denies any alcohol or recreational drug use. He is not , he lives at home with his girlfriend. REVIEW OF SYSTEMS: As per HPI. All other review of systems reviewed and negative at this time. ALLERGIES: No known drug allergies. MEDICATIONS AN OUTPATIENT: 1. Aspirin 81 mg daily. 2. Crestor 40 mg daily. 3. Lasix 20 mg daily. 4. Toprol-XL 50 mg at bedtime. 5. Imdur 60 mg daily. 6. Zantac b.i.d. 7. Singular daily. 8. Prednisone daily. PHYSICAL EXAMINATION: VITALS: Temperature 36.4, pulse 71, respiratory rate 12, blood pressure 132/68. GENERAL: Awake, alert, oriented x3, in no acute distress. HEENT: Normocephalic, atraumatic. Pupils equal, round and reactive to light and accommodation. Extraocular muscles intact. Anicteric sclerae. Moist mucous membranes. NECK: No JVD, no bruit. CARDIOVASCULAR: Regular. Positive S4. Normal S1 and S2. No S3. No murmurs or rubs. PULMONARY: Clear to auscultation bilaterally. No rales, rhonchi or wheezing. ABDOMEN: Bowel sounds x4, soft. No rebound, guarding or tenderness. No organomegaly. EXTREMITIES: No clubbing, cyanosis or edema. +2 pedal pulses bilaterally. SKIN: Warm and dry. TEST RESULTS: 2D echocardiogram performed 04/2016 was read as normal LV systolic function, EF 60-64%, moderate left atrial enlargement, mild aortic valve sclerosis without stenosis, mild mitral regurgitation, mild to moderate tricuspid regurgitation, pulmonary systolic pressure was 37 mmHg. A 12-lead EKG performed in the Emergency Department, independently reviewed at this time shows V-paced rhythm at 83 beats per minute. IMPRESSION: 1. Preop risk assessment prior to undergoing urgent cholecystectomy. 2. Coronary artery disease, status post coronary artery bypass graft and multiple percutaneous coronary interventions. 3. Normal left ventricular systolic function. 4. History of complete heart block, status post permanent pacemaker placement, pacer dependent. 5. Persistent atrial fibrillation, on chronic Coumadin therapy. 6. Interstitial lung disease. RECOMMENDATIONS: It was my pleasure to see Mr. Gramajo in consultation today. The patient was counseled. In terms of perioperative cardiovascular risk, I would place him at a moderate risk for any adverse perioperative cardiovascular event with his risk being approximately less than 5%. It was further explained that no further cardiac testing or intervention would further lower that risk. He states he understands, he is accepting of this risk and wishes to proceed. So I see no benefit from delaying from a cardiac standpoint. He is on Coumadin with an INR of 1.8 today. A unit of FFP has been ordered and will be given, and we will continue his Coumadin as well as all of his other outpatient medications postoperatively. Thank you very much for allowing me to participate in the care of your patient.
[2016-09-07] MEDS ORDERED: LACTATED RINGER'S 1000ML 1,000 ML IV PRN (12:10)
[2016-09-07] MEDS ORDERED: FENTANYL CITRATE INJ 50 MCG/1 ML 2 ML VIAL IV PRN (12:15)
[2016-09-07] MEDS ORDERED: HYDROmorphone INJ 1 MG/ML SYR IV PRN (12:15)
[2016-09-07] MEDS ORDERED: LIDOCAINE HCL 2% 2 ML VIAL (20MG/ML) ONE (12:22)
[2016-09-07] MEDS ORDERED: FENTANYL CITRATE INJ 50 MCG/1 ML 2 ML VIAL ONE ×2 (12:22→14:11)
[2016-09-07] MEDS ORDERED: ROCURONIUM BROMIDE 10 MG/ML 5 ML VIAL ONE (12:22)
[2016-09-07] MEDS ORDERED: MIDAZOLAM HCL 1 MG/ML 2ML VIAL ONE (12:22)
[2016-09-07] MEDS ORDERED: PROPOFOL IV EMULSION 10 MG/ML 20 ML VIAL IV ONE (12:22)
[2016-09-07] MEDS ORDERED: CEFOXITIN IV 2,000 MG in DEXTROSE 5% 50ML 50 ML IV ONE (12:30)
[2016-09-07] MEDS ORDERED: ONDANSETRON INJ 2 MG/ML 2 ML VIAL ONE (13:04)
[2016-09-07] MEDS ORDERED: DEXAMETHASONE SOD INJ 4 MG/ML VIAL ONE (13:04)
[2016-09-07] MEDS ORDERED: GLYCOPYRROLATE INJ 0.2 MG/ML VIAL ONE (13:18)
[2016-09-07] MEDS ORDERED: NEOSTIGMINE METHYLSULFATE 5 MG/5 ML SYR ONE (13:18)
[2016-09-07] MEDS ORDERED: CONRAY 60% 50 ML VIAL INSTIL ONE (14:06)
[2016-09-07] MEDS ORDERED: BUPIVACAINE 0.5 % 5 MG/1 ML MPF 30ML VIAL INJ ONE (14:06)
[2016-09-07] MEDS ORDERED: [UNRECOGNIZED DRUG - OTHER] TOP ONE (14:07)
[2016-09-07] MEDS ORDERED: SURGICEL ABSORB HEMOSTAT 2IN X 14IN TOP ONE (14:08)
[2016-09-07] MEDS ORDERED: COLLAGEN HEMOSTAT ABSORBABLE TOP ONE (14:08)
--- NOTE | 2016-09-07 14:23 | DIAGNOSTIC IMAGING REPORT ---
CHOLANGIOGRAM O.R. CLINICAL HISTORY: Cholecystectomy COMPARISON STUDY: Gallbladder ultrasound dated 09/07/2016 FLUOROSCOPY TIME: 13 seconds. FINDINGS: A single intraoperative fluoroscopic spot image is provided for interpretation. There is contrast within the common bile duct. No filling defects are visualized. There is free flow into the duodenum. The intrahepatic biliary tree is poorly delineated. IMPRESSION: No common bile duct filling defects identified Electronically signed by: Jordon Parish M.D. 09/07/2016 2:20 PM
[2016-09-07] MEDS ORDERED: OXYCODONE/ACETAMINOPHEN 5-325 TAB PO PRN (14:30)
--- NOTE | 2016-09-07 14:30 | [facility] Post Operative Brief Note ---
Immediate Operative Summary Operative Date Sep 07, 2016. Pre-Operative Diagnosis Acute cholecystitis with gallstone pancreatitis Post-Operative Diagnosis Acute cholecystitis with gallstone pancreatitis Procedure(s) Performed Laparoscopic Cholecystectomy with Intraoperative Cholangiogram Surgeon Dr. Fadumo Denney Electrical Mechanic Surgeon(s) None Estimated Blood Loss 30ml Findings distended, inflamed, very oozy gallbladder with multiple small feeding vessels in addition to cystic artery. Bleeding from one of the small vessels requiring clips. Surgicell used. IOC normal. Specimens A. Gallbaladder and Contents Drains none Anesthesia GET Complication(s) None Disposition Recovery Room / PACU
--- NOTE | 2016-09-07 14:55 | OPERATIVE REPORT ---
DATE OF OPERATION: 09/07/2016 PREOPERATIVE DIAGNOSES: Gallstone pancreatitis, acute cholecystitis. POSTOPERATIVE DIAGNOSIS: Same. OPERATIVE PROCEDURE: Laparoscopic cholecystectomy with intraoperative cholangiogram. SURGEON: Dr. Fadumo Denney. WIRE WRAPPER MACHINE OPERATOR: None. ESTIMATED BLOOD LOSS: 30 mL. INTRAVENOUS FLUIDS: 1 liter. DRAINS: None. COMPLICATIONS: None. SPECIMENS: Gallbladder. OPERATIVE FINDINGS: Distended friable, edematous gallbladder. Normal intraoperative cholangiogram, very oozy with multiple small feeding vessels, one of which did cause some minor bleeding, which was ultimately controlled with clips and Surgicel. INDICATIONS: Mr. Gramajo is a 76-year-old gentleman who presented with gallstone pancreatitis. Imaging was also suggestive of acute cholecystitis. He is on chronic steroid use. His history is also notable for obesity and chronic anticoagulation. After receiving a unit of FFP for an INR of 1.8, he was counseled regarding the need for laparoscopic cholecystectomy with cholangiogram. He consented to proceed. PROCEDURE: The patient received cefoxitin preoperatively. After the induction of general endotracheal anesthesia, he had placement of sequential compression devices. His abdomen was sterilely prepped and draped. He was positioned in Trendelenburg. A supraumbilical incision was made. A Veress needle was placed into the peritoneal cavity, this was tested with the saline drop test. Pneumoperitoneum was established, initial pressure was 1 mmHg and this was taken up to 15 mmHg. A 5 mm trocar was placed, 3 additional trocars were placed under direct vision, an 11 in the epigastrium and two 5s on the right side of the abdomen. The gallbladder was noted to be distended and had green staining edematous wall, it was also quite friable, I am not surprising given his chronic steroid use. Given his obesity, he was positioned in severe reverse Trendelenburg in order to do the procedure. The gallbladder was able to be retracted over a large liver. The area at the triangle of Calot was quite fatty, this was ultimately dissected free. The cystic duct was from the cystic artery, both critical views were seen anteriorly and posteriorly. The cystic artery was doubly clipped on the remaining side, similarly clipped on the gallbladder side and divided. The cystic duct was singly clipped on the gallbladder side and a ductotomy created. A cholangiocatheter was introduced and cholangiogram performed. Three clips were then placed below the ductotomy and the cystic duct divided. The gallbladder was then dissected and in the course of dissection, there was some bleeding noted from some of the fatty peritoneum. A few clips were placed to try to control this, ultimately this was grasped and held and then appeared to slow down. Another clip was placed which appeared to control the bleeding and the gallbladder was then removed off the liver bed, this was quite oozy. The gallbladder was then placed in an Endobag and removed through the umbilical incision. The abdomen was irrigated with a liter of saline. The gallbladder fossa was inspected. There was no active bleeding noted, however, was quite oozy, both Avitene and ultimately Surgicel were used, it was again reinspected after waiting 5 minutes, no evidence of any blood pooling was noted. Thus decision was made to close, pneumoperitoneum was released, 30 mL of 0.5% Marcaine had been used for local anesthesia throughout the procedure. The fascia of the epigastric incision was closed with 0 Vicryl stitches placed anteriorly. The skin of all 4 incisions closed with running subcuticular 4-0 Vicryl sutures. Steri-Strip and sterile dressings were applied. He was awakened and taken to recovery in stable condition. I attest to the content of the Intraoperative Record and any orders documented therein. Any exceptio ns are noted below.
--- NOTE | 2016-09-07 14:55 | Anesthesiology Progress Note ---
Anesthesia Post Op Note Date & Time Sep 07, 2016 at 14:54 Vital Signs Pain Intensity: 4 Vital Signs Past 12 Hours Date Time Temp Pulse Resp B/P Pulse Ox O2 Delivery O2 Flow Rate FiO2 09/07/16 14:32 36.6 76 18 127/76 100 Mask 10 09/07/16 12:20 36.9 70 18 131/77 96 09/07/16 12:03 36.5 70 18 118/67 96 09/07/16 11:08 36.4 74 18 134/66 95 09/07/16 10:32 36.4 71 17 135/78 95 09/07/16 10:20 36.3 71 17 149/80 95 09/07/16 10:10 36.3 72 16 136/78 09/07/16 08:00 Room Air 09/07/16 07:48 36.4 71 18 132/68 94 Room Air 09/07/16 05:19 36.4 75 18 156/87 96 Room Air 09/07/16 05:00 Room Air 09/07/16 04:51 75 16 117/81 97 09/07/16 03:46 73 16 115/69 97 Room Air Notes Mental Status: alert / awake / arousable, participated in evaluation Pt Amnestic to Procedure: Yes Nausea / Vomiting: adequately controlled Pain: adequately controlled Airway Patency, RR, SpO2: stable & adequate BP & HR: stable & adequate Hydration State: stable & adequate Anesthetic Complications: no major complications apparent Pt doing well.
[2016-09-07] MEDS: OXYCODONE/ACETAMINOPHEN 5-325 TAB PO PRN (17:52)
--- NOTE | 2016-09-07 18:30 | Progress Note ---
Internal Med Progress Note Date of Service: Sep 07, 2016. Provider Documentation: resting comfortably. Ambulating in room. Afebrile. Pain under control. No nausea. No chest pain or sob. cardiology ok for surgery. Plan for cholecystectomy today. Will monitor Vital Signs: Date Time Temp Pulse Resp B/P Pulse Ox O2 Delivery O2 Flow Rate FiO2 09/07/16 17:42 72 17 148/79 92 Room Air 09/07/16 16:37 36.4 70 16 147/79 93 Room Air 09/07/16 16:10 36.4 70 16 138/74 91 Room Air 09/07/16 15:45 36.5 16 149/78 91 Room Air 09/07/16 15:30 95 Nasal Cannula 2.0 09/07/16 15:30 95 Nasal Cannula 2.0 09/07/16 15:30 36.5 74 14 132/76 95 Nasal Cannula 2.0 09/07/16 15:16 132/78 09/07/16 15:10 36.6 70 12 134/77 98 Nasal Cannula 4 09/07/16 15:09 69 20 09/07/16 15:09 71 20 98 09/07/16 15:08 134/77 09/07/16 15:04 71 16 98 09/07/16 15:04 70 16 09/07/16 15:03 134/78 09/07/16 14:59 70 19 09/07/16 14:59 70 19 96 09/07/16 14:58 126/74 09/07/16 14:54 70 12 09/07/16 14:54 70 12 97 09/07/16 14:53 132/75 09/07/16 14:52 70 18 97 09/07/16 14:52 70 18 09/07/16 14:48 130/78 09/07/16 14:47 70 22 95 09/07/16 14:47 71 22 09/07/16 14:43 127/80 09/07/16 14:42 71 12 96 09/07/16 14:42 71 12 09/07/16 14:38 125/76 09/07/16 14:37 73 14 97 09/07/16 14:37 73 14 09/07/16 14:33 128/90 09/07/16 14:32 36.6 76 18 127/76 100 Mask 10 09/07/16 14:32 76 15 09/07/16 14:32 76 15 99 09/07/16 12:20 36.9 70 18 131/77 96 09/07/16 12:03 36.5 70 18 118/67 96 09/07/16 11:08 36.4 74 18 134/66 95 09/07/16 10:32 36.4 71 17 135/78 95 09/07/16 10:20 36.3 71 17 149/80 95 09/07/16 10:10 36.3 72 16 136/78 09/07/16 08:00 Room Air 09/07/16 07:48 36.4 71 18 132/68 94 Room Air 09/07/16 05:19 36.4 75 18 156/87 96 Room Air 09/07/16 05:00 Room Air 09/07/16 04:51 75 16 117/81 97 09/07/16 03:46 73 16 115/69 97 Room Air 09/07/16 02:18 78 16 119/68 96 Room Air 09/07/16 00:45 72 16 120/74 96 Room Air 09/06/16 23:50 72 09/06/16 23:30 36.4 76 20 116/72 94 Room Air Lab Results: Results Past 24 Hours Test 09/06/16 23:45 09/06/16 23:48 09/07/16 07:10 Range/Units White Blood Count 6.50 4.14 4.8-10.8 K/uL Red Blood Count 4.71 4.19 4.7-6.1 M/uL Hemoglobin 13.6 12.2 14.0-18.0 g/dL Hematocrit 40.5 36.2 42-52 % Mean Corpuscular Volume 86.0 86.4 80-100 fL Mean Corpuscular Hemoglobin 28.9 29.1 25-34 pg Mean Corpuscular Hemoglobin Concent 33.6 33.7 32-36 g/dl Platelet Count 99 93 130-400 K/uL Mean Platelet Volume 9.9 11.7 7.4-10.4 fL Neutrophils (%) (Auto) 70.0 % Lymphocytes (%) (Auto) 20.0 % Monocytes (%) (Auto) 8.9 % Eosinophils (%) (Auto) 0.6 % Basophils (%) (Auto) 0.0 % Neutrophils # (Auto) 4.55 1.4-6.5 K/uL Lymphocytes # (Auto) 1.30 1.2-3.4 K/uL Monocytes # (Auto) 0.58 0.11-0.59 K/uL Eosinophils # (Auto) 0.04 0-0.5 K/uL Basophils # (Auto) 0.00 0-0.2 K/uL RDW Standard Deviation 51.5 52.4 36.4-46.3 fL RDW Coefficient of Variation 16.4 16.5 11.5-14.5 % Immature Granulocyte % (Auto) 0.5 % Immature Granulocyte # (Auto) 0.03 0.00-0.02 K/uL Platelet Estimate DECREASED Prothrombin Time 18.7 19.3 9.0-12.0 SECONDS Prothromb Time International Ratio 1.7 1.8 0.9-1.1 Activated Partial Thromboplast Time 35.3 21.0-31.0 SECONDS Partial Thromboplastin Ratio 1.4 Urine Color YELLOW Urine Appearance CLEAR CLEAR Urine pH 6.5 4.5-7.5 Urine Specific [place] 1.015 1.000-1.030 Urine Protein 1+ NEG Urine Glucose (UA) NEG NEG Urine Ketones NEG NEG Urine Occult Blood TRACE NEG Urine Nitrite NEG NEG Urine Bilirubin NEG NEG Urine Urobilinogen NEG NEG Urine Leukocyte Esterase NEG NEG Urine WBC (Auto) 1-5 0-5 /hpf Urine RBC (Auto) 0-4 0-4 /hpf Urine Hyaline Casts (Auto) 1-5 0-5 /lpf Urine Epithelial Cells (Auto) >30 0-5 /lpf Urine Bacteria (Auto) NEG NEG Urine Renal Epithelial Cells 0-5 /lpf Sodium Level 143 145 136-145 mmol/L Potassium Level 3.5 3.6 3.5-5.1 mmol/L Chloride Level 104 112 98-107 mmol/L Carbon Dioxide Level 29 23 21-32 mmol/L Anion Gap 10.0 20.0 10.0 3-11 mmol/L Blood Urea Nitrogen 22 18 7-18 mg/dl Creatinine 1.40 1.20 0.60-1.40 mg/dl Est Creatinine Clear Calc Drug Dose 56.2 65.5 ml/min Estimated GFR () 55.8 67.2 Estimated GFR (Non- 48.1 58.0 BUN/Creatinine Ratio 15.9 14.8 10-20 Random Glucose 200 109 70-99 mg/dl Calcium Level 8.9 8.9 8.5-10.1 mg/dl Total Bilirubin 1.0 0.6 0.2-1 mg/dl Direct Bilirubin 0.4 0-0.2 mg/dl Aspartate Amino Transf (AST/SGOT) 23 21 15-37 U/L Alanine Aminotransferase (ALT/SGPT) 24 21 12-78 U/L Alkaline Phosphatase 66 54 45-117 U/L Total Creatine Kinase 174 39-308 U/L Creatine Kinase MB 4.2 0.5-3.6 ng/ml Creatine Kinase MB Ratio 2.4 0-3.0 Troponin I 0.018 0-0.045 ng/ml Total Protein 7.0 5.9 6.4-8.2 gm/dl Albumin 3.5 2.9 3.4-5.0 gm/dl Lipase 5554 1305 73-393 U/L Bedside Hemoglobin 13.3 14.0-18.0 g/dl Bedside Hematocrit 39 42-52 % Bedside Sodium 141 135-144 mEq/L Bedside Potassium 3.4 3.3-5.0 mEq/L Bedside Chloride 100 101-112 mEq/L Bedside Total CO2 26 24-31 mEq/l Bedside Blood Urea Nitrogen 23 7-18 mg/dl Bedside Creatinine 1.3 0.6-1.3 mg/dl Bedside Glucose (other) 199 70-99 mg/dl Bedside Ionized Calcium (Brandi) 1.20 1.12-1.32 mmol/l Globulin 3.0 2.5-4.0 gm/dl Albumin/Globulin Ratio 1.0 0.9-2
[2016-09-07] MEDS: CEFOXITIN IV 2,000 MG in DEXTROSE 5% 50ML 50 ML IV SCH (18:44)
[2016-09-07] MEDS ORDERED: METOPROLOL SUCC 25MG EXT REL TAB PO SCH (21:00)
[2016-09-07] MEDS ORDERED: ROSUVASTATIN CALCIUM 20 MG TAB PO SCH (21:00)
[2016-09-08] MEDS: OXYCODONE/ACETAMINOPHEN 5-325 TAB PO PRN
[2016-09-08] MEDS: SODIUM CHLORIDE 0.9% 1000ML 1,000 ML IV SCH ×2 (00:01→11:04)
[2016-09-08] MEDS: CEFOXITIN IV 2,000 MG in DEXTROSE 5% 50ML 50 ML IV SCH ×3 (01:19→13:43)
[2016-09-08 03:19] VITALS: BP 103/62; PULSE 75; TEMP 36.6; O2SAT 91; O2SAT 93
[2016-09-08 06:04] LABS: HEMATOCRIT 35.2 % (42-52); MEAN CELL VOLUME 87.1 fL (80-100); MEAN CORPUSCULAR HEMOGLOBIN 28.7 pg (25-34); RED BLOOD COUNT 4.04 M/uL (4.7-6.1); WHITE BLOOD COUNT 6.53 K/uL (4.8-10.8)
[2016-09-08 06:05] LABS: MEAN PLATELET VOLUME 10.5 fL (7.4-10.4); PLATELET COUNT 65 K/uL (130-400)
[2016-09-08 06:20] LABS: INR 1.7 (0.9-1.1); PROTHROMBIN TIME (PATIENT) 18.2 SECONDS (9.0-12.0)
[2016-09-08 06:33] LABS: BUN/CREATININE RATIO 13.1 (10-20); CALCIUM 8.4 mg/dl (8.5-10.1); CREATININE 1.4 mg/dl (0.60-1.40); POTASSIUM 4.2 mmol/L (3.5-5.1)
[2016-09-08 07:03] VITALS: BP 107/61; PULSE 71; TEMP 36.6; O2SAT 96
--- NOTE | 2016-09-08 08:16 | Anesthesiology Progress Note ---
Anesthesia Post Op Note Date & Time Sep 08, 2016 at 08:15 Vital Signs Vital Signs Past 12 Hours Date Time Temp Pulse Resp B/P Pulse Ox O2 Delivery O2 Flow Rate FiO2 09/08/16 07:03 36.6 71 16 107/61 96 Room Air 09/08/16 03:19 36.6 75 18 103/62 93 Room Air 09/07/16 23:45 Room Air 09/07/16 23:03 36.6 71 18 111/66 91 Room Air 09/07/16 20:58 36.3 85 16 110/65 91 Room Air 09/07/16 20:20 76 127/69 Notes Mental Status: alert / awake / arousable, participated in evaluation Pt Amnestic to Procedure: Yes Nausea / Vomiting: adequately controlled Pain: adequately controlled Airway Patency, RR, SpO2: stable & adequate BP & HR: stable & adequate Hydration State: stable & adequate Anesthetic Complications: no major complications apparent
[2016-09-08] MEDS ORDERED: ASPIRIN 81 MG ECTAB PO SCH (09:00)
[2016-09-08] MEDS: IPRATROPIUM BROMIDE/ALBUTEROL respimat INH INH SCH ×3 (09:10→16:40)
[2016-09-08] MEDS: MONTELUKAST SOD 10 MG TAB PO SCH (09:11)
[2016-09-08] MEDS: ISOSORBIDE MONONITRATE 60 MG TABCR PO SCH (09:11)
[2016-09-08] MEDS ORDERED: INFLUENZA VIRUS QUAD VACCINE 0.5 ML SYR IM. ONE (10:15)
[2016-09-08] MEDS ORDERED: INFLUENZA ADMINISTRATION CHARGE ONE (10:15)
--- NOTE | 2016-09-08 10:58 | Progress Note ---
Internal Med Progress Note Date of Service: Sep 08, 2016. Provider Documentation: resting comfortably. s/p lap cholecystectomy yesterday denies any pain tolerated diet last night no nausea afebrile wants to go home Exam: General-alert and oriented x 3 ENT-normal hearing Neck-no neck masses Lungs-cta b/l no wheezing or crackles Heart-s1 and s2 heard regular rate and rhythm, no murmurs Abdomen-soft bowel sounds present non tender no distension s/p lap eri Extremities-no edema no erythema Neuro-alert and awake moves extremities ASSESSMENT & PLAN: This is a 76 year old male with PMH of CAD s/p stents, hx. of complete heart block s/p PPM, hx. of atrial fibrillation on anticoagulation, interstitial lung disease on chronic prednisone, HTN presents with severe epigastric and right upper quadrant abdominal pain Acute Gallstone Pancreatitis Acute Cholecystitis Most likely from a gallstone in the CBD; which now seems to have passed RUQ U/S- probably acute cholecystitis lipase > 5000 Presented with severe pain - relived now cardiology saw the patient for for pre op seen by surgery and s/p lap cholecystectomy tolerating full liquid diet Hx. of Atrial Fibrillation s/p PPM held coumadin and one FFP given prior to surgery to hold anticoagulants for 48hrs as per surgery rates under control CAD s/p stenting Stable on e b-emerson, statin Holding ASA for now secondary to poss. surgery HTN BP controlled on metoprolol and Imdur. DVT ppx SCDs FULL CODE Disposition possible d/c in am Vital Signs: Date Time Temp Pulse Resp B/P Pulse Ox O2 Delivery O2 Flow Rate FiO2 09/08/16 07:40 Room Air 09/08/16 07:03 36.6 71 16 107/61 96 Room Air 09/08/16 03:19 36.6 75 18 103/62 93 Room Air 09/07/16 23:45 Room Air 09/07/16 23:03 36.6 71 18 111/66 91 Room Air 09/07/16 20:58 36.3 85 16 110/65 91 Room Air 09/07/16 20:20 76 127/69 09/07/16 18:34 36.5 69 16 114/71 93 Room Air 09/07/16 17:42 72 17 148/79 92 Room Air 09/07/16 16:37 36.4 70 16 147/79 93 Room Air 09/07/16 16:10 36.4 70 16 138/74 91 Room Air 09/07/16 15:45 36.5 16 149/78 91 Room Air 09/07/16 15:30 95 Nasal Cannula 2.0 09/07/16 15:30 95 Nasal Cannula 2.0 09/07/16 15:30 36.5 74 14 132/76 95 Nasal Cannula 2.0 09/07/16 15:16 132/78 09/07/16 15:10 36.6 70 12 134/77 98 Nasal Cannula 4 09/07/16 15:09 69 20 09/07/16 15:09 71 20 98 09/07/16 15:08 134/77 09/07/16 15:04 71 16 98 09/07/16 15:04 70 16 09/07/16 15:03 134/78 09/07/16 14:59 70 19 09/07/16 14:59 70 19 96 09/07/16 14:58 126/74 09/07/16 14:54 70 12 09/07/16 14:54 70 12 97 09/07/16 14:53 132/75 09/07/16 14:52 70 18 97 09/07/16 14:52 70 18 09/07/16 14:48 130/78 09/07/16 14:47 70 22 95 09/07/16 14:47 71 22 09/07/16 14:43 127/80 09/07/16 14:42 71 12 96 09/07/16 14:42 71 12 09/07/16 14:38 125/76 09/07/16 14:37 73 14 97 09/07/16 14:37 73 14 09/07/16 14:33 128/90 09/07/16 14:32 36.6 76 18 127/76 100 Mask 10 09/07/16 14:32 76 15 09/07/16 14:32 76 15 99 09/07/16 12:20 36.9 70 18 131/77 96 09/07/16 12:03 36.5 70 18 118/67 96 09/07/16 11:08 36.4 74 18 134/66 95 Lab Results: Results Past 24 Hours Test 09/08/16 05:43 Range/Units White Blood Count 6.53 4.8-10.8 K/uL Red Blood Count 4.04 4.7-6.1 M/uL Hemoglobin 11.6 14.0-18.0 g/dL Hematocrit 35.2 42-52 % Mean Corpuscular Volume 87.1 80-100 fL Mean Corpuscular Hemoglobin 28.7 25-34 pg Mean Corpuscular Hemoglobin Concent 33.0 32-36 g/dl RDW Standard Deviation 52.8 36.4-46.3 fL RDW Coefficient of Variation 16.4 11.5-14.5 % Platelet Count 65 130-400 K/uL Mean Platelet Volume 10.5 7.4-10.4 fL Prothrombin Time 18.2 9.0-12.0 SECONDS Prothromb Time International Ratio 1.7 0.9-1.1 Sodium Level 140 136-145 mmol/L Potassium Level 4.2 3.5-5.1 mmol/L Chloride Level 108 98-107 mmol/L Carbon Dioxide Level 24 21-32 mmol/L Anion Gap 8.0 3-11 mmol/L Blood Urea Nitrogen 18 7-18 mg/dl Creatinine 1.40 0.60-1.40 mg/dl Est Creatinine Clear Calc Drug Dose 56.2 ml/min Estimated GFR () 55.8 Estimated GFR (Non- 48.1 BUN/Creatinine Ratio 13.1 10-20 Random Glucose 184 70-99 mg/dl Calcium Level 8.4 8.5-10.1 mg/dl
[2016-09-08 11:35] VITALS: BP 111/68; PULSE 71; TEMP 36.5; O2SAT 93
--- NOTE | 2016-09-08 11:46 | Cardiology Follow-Up ---
Subjective General Date of Service: Sep 08, 2016. Pt evaluation today including: conversation w/ patient, physical exam, chart review, lab review, review of studies, review of inpatient medication list History of Present Illness Patient feeling well POD 1 lap eri. No chest pain or SOB. No cough, fever, chills. No orthopnea, PND or LE edema. Anxious to go home. Offers no complaints. Allergies Coded Allergies: No Known Allergies (Verified , 09/07/16) Social History Smoking Status: Never Smoker Hx Tobacco Use In Past Year?: No (Quit 40 years ago) Hx Alcohol Use - Type And Amou: Yes (2 beers to to 3 times weekly) Hx Substance Use - Type And Am: No Problem List Medical Problems: (1) Acute cholecystitis Status: Acute (2) Elevated lipase Status: Acute (3) Flank pain Status: Acute (4) Herpes zoster Status: Acute Review of Systems Respiratory: No cough, No dyspnea at rest, No hemoptysis, No shortness of breath, No sputum, No wheezing Cardiac: No PND, No chest pain, No edema, No orthopnea, No palpitations Physical Exam Vital Signs Last Vital Signs Documentation Date Time Temp Pulse Resp B/P Pulse Ox O2 Delivery O2 Flow Rate FiO2 09/08/16 07:40 Room Air 09/08/16 07:03 36.6 71 16 107/61 96 09/07/16 15:30 2.0 Physical Exam Constitutional: General Apperance: heathly-appearing Level of Distress: NAD Psychiatric: Mental Status: active & alert Orientation: to time, to place, to person Head: normocephalic Eyes: Pupils: PERRLA Neck: supple Lungs: Respiratory effort: no dyspnea Auscultation: breath sounds normal, no rales/crackles, no rhonchi Cardiovascular: Heart Auscultation: RRR, normal S1, normal S2, no murmurs Abdomen: Bowel Sounds: normal Extremities: no cyanosis, no edema Assessment and Plan Assessment and Plan IMPRESSION: 1. POD 1 lap eri 2. Coronary artery disease, status post coronary artery bypass graft and multiple percutaneous coronary interventions. 3. Normal left ventricular systolic function. 4. History of complete heart block, status post permanent pacemaker placement, pacer dependent. 5. Persistent atrial fibrillation, on chronic Coumadin therapy. 6. Interstitial lung disease. Stable RECOMMENDATIONS: Patient tolerated procedure without incident. Feeling well. Stable cardiac signs/symptoms. Resume coumadin today. Ordered home dose. Will notify anticoagulation clinic regarding procedure for close f/u upon discharge. Continue all other cardiac medications as prescribed. Case discussed with Dr. Brar. Will sign off. Please notify curriculum coach operations support specialist if hospital course changes. Cardiology attending: Pt seen and examined, agree with findings and assessment as per Jeanne Nettles. Pt tolerated surgery well. Will restart coumadin, f/u with outpatient coag clinic, cont other outpatient cardiac meds. Laboratory Results Last 24 Hours Test 09/08/16 05:43 White Blood Count 6.53 K/uL Red Blood Count 4.04 M/uL Hemoglobin 11.6 g/dL Hematocrit 35.2 % Mean Corpuscular Volume 87.1 fL Mean Corpuscular Hemoglobin 28.7 pg Mean Corpuscular Hemoglobin Concent 33.0 g/dl RDW Standard Deviation 52.8 fL RDW Coefficient of Variation 16.4 % Platelet Count 65 K/uL Mean Platelet Volume 10.5 fL Prothrombin Time 18.2 SECONDS Prothromb Time International Ratio 1.7 Sodium Level 140 mmol/L Potassium Level 4.2 mmol/L Chloride Level 108 mmol/L Carbon Dioxide Level 24 mmol/L Anion Gap 8.0 mmol/L Blood Urea Nitrogen 18 mg/dl Creatinine 1.40 mg/dl Est Creatinine Clear Calc Drug Dose 56.2 ml/min Estimated GFR () 55.8 Estimated GFR (Non- 48.1 BUN/Creatinine Ratio 13.1 Random Glucose 184 mg/dl Calcium Level 8.4 mg/dl
--- NOTE | 2016-09-08 14:02 | Surgery Progress Note ---
Surgery Progress Note Date of Service Sep 08, 2016. Subjective + ambulating, + feeling well, No complaints Wants to go home Objective Vital Signs: Date Time Temp Pulse Resp B/P Pulse Ox O2 Delivery O2 Flow Rate FiO2 09/08/16 11:35 36.5 71 16 111/68 93 Room Air 09/08/16 07:40 Room Air 09/08/16 07:03 36.6 71 16 107/61 96 Room Air 09/08/16 03:19 36.6 75 18 103/62 93 Room Air 09/07/16 23:45 Room Air 09/07/16 23:03 36.6 71 18 111/66 91 Room Air 09/07/16 20:58 36.3 85 16 110/65 91 Room Air 09/07/16 20:20 76 127/69 09/07/16 18:34 36.5 69 16 114/71 93 Room Air 09/07/16 17:42 72 17 148/79 92 Room Air 09/07/16 16:37 36.4 70 16 147/79 93 Room Air 09/07/16 16:10 36.4 70 16 138/74 91 Room Air 09/07/16 15:45 36.5 16 149/78 91 Room Air 09/07/16 15:30 95 Nasal Cannula 2.0 09/07/16 15:30 95 Nasal Cannula 2.0 09/07/16 15:30 36.5 74 14 132/76 95 Nasal Cannula 2.0 09/07/16 15:16 132/78 09/07/16 15:10 36.6 70 12 134/77 98 Nasal Cannula 4 09/07/16 15:09 69 20 09/07/16 15:09 71 20 98 09/07/16 15:08 134/77 09/07/16 15:04 71 16 98 09/07/16 15:04 70 16 09/07/16 15:03 134/78 09/07/16 14:59 70 19 09/07/16 14:59 70 19 96 09/07/16 14:58 126/74 09/07/16 14:54 70 12 09/07/16 14:54 70 12 97 09/07/16 14:53 132/75 09/07/16 14:52 70 18 97 09/07/16 14:52 70 18 09/07/16 14:48 130/78 09/07/16 14:47 70 22 95 09/07/16 14:47 71 22 09/07/16 14:43 127/80 09/07/16 14:42 71 12 96 09/07/16 14:42 71 12 09/07/16 14:38 125/76 09/07/16 14:37 73 14 97 09/07/16 14:37 73 14 09/07/16 14:33 128/90 09/07/16 14:32 36.6 76 18 127/76 100 Mask 10 09/07/16 14:32 76 15 09/07/16 14:32 76 15 99 General Appearance: WD/WN, no apparent distress Head: normocephalic Respiratory/Chest: no respiratory distress, no accessory muscle use Abdomen: non tender, non distended, soft Incision(s): clean, intact, ecchymosis (superior epigastric) Laboratory Results: Results Past 24 Hours Test 09/08/16 05:43 Range/Units White Blood Count 6.53 4.8-10.8 K/uL Red Blood Count 4.04 4.7-6.1 M/uL Hemoglobin 11.6 14.0-18.0 g/dL Hematocrit 35.2 42-52 % Mean Corpuscular Volume 87.1 80-100 fL Mean Corpuscular Hemoglobin 28.7 25-34 pg Mean Corpuscular Hemoglobin Concent 33.0 32-36 g/dl RDW Standard Deviation 52.8 36.4-46.3 fL RDW Coefficient of Variation 16.4 11.5-14.5 % Platelet Count 65 130-400 K/uL Mean Platelet Volume 10.5 7.4-10.4 fL Prothrombin Time 18.2 9.0-12.0 SECONDS Prothromb Time International Ratio 1.7 0.9-1.1 Sodium Level 140 136-145 mmol/L Potassium Level 4.2 3.5-5.1 mmol/L Chloride Level 108 98-107 mmol/L Carbon Dioxide Level 24 21-32 mmol/L Anion Gap 8.0 3-11 mmol/L Blood Urea Nitrogen 18 7-18 mg/dl Creatinine 1.40 0.60-1.40 mg/dl Est Creatinine Clear Calc Drug Dose 56.2 ml/min Estimated GFR () 55.8 Estimated GFR (Non- 48.1 BUN/Creatinine Ratio 13.1 10-20 Random Glucose 184 70-99 mg/dl Calcium Level 8.4 8.5-10.1 mg/dl Assessment & Plan s/p lap eri for acute cholecystitis. OK to resume coumadin today - would hold on therapeutic lovenox (if needed) until tomorrow. Stable for discharge from surgical standpoint.
--- NOTE | 2016-09-08 14:04 | Discharge Instructions ---
Discharge Instructions Admission Reason for Admission: Acute Gallstone Pancreatitis Discharge Discharge Diagnosis / Problem: gallstone pancreatitis Discharge Goals Goal(s): Decrease discomfort Activity Recommendations Activity Limitations: resume your previous activity Lifting Limitations: no more than 10 pounds (2 wks) Exercise/Sports Limitations: until after follow-up appointment May Resume Sexual Activity: after two weeks Shower/Bathe: tomorrow (remove dressings prior to shower, leave steristrips x 7 -10 days. OK to shower 24 hrs after surgery.) Driving or Machine Use: 3-5 days . Current Hospital Diet Patient's current hospital diet: Full Liquid Diet Discharge Diet Recommended Diet: Low Fat Diet Procedures Procedures Performed: Laparoscopic Cholecystectomy with Intraoperative Cholangiogram Pending Studies Studies pending at discharge: no Medical Emergencies . Who to Call and When: Medical Emergencies: If at any time you feel your situation is an emergency, please call 911 immediately. . Non-Emergent Contact Non-Emergency issues call your: Primary Care Provider Contact Number: call [phone] to schedule a 2 [address] postop appt with Dr Fadumo Denney . "Provider Documentation" section prepared by Fadumo Denney. VTE Core Measure Inpt VTE Proph given/why not?: SCD's
[2016-09-08 15:15] VITALS: O2SAT 93
[2016-09-08 15:33] VITALS: BP 139/83; PULSE 84; TEMP 36.4; O2SAT 94
[2016-09-08] MEDS ORDERED: WARFARIN SOD 2 MG TAB PO SCH (16:00)
[2016-09-08 18:01] VITALS: BP 139/83; PULSE 84; TEMP 36.4; O2SAT 94
--- NOTE | 2016-09-08 20:07 | Discharge Summary ---
Discharge Summary Admission Date: Sep 07, 2016 at 04:39 Discharge Date: Sep 08, 2016 Discharge Disposition: Home Principal Diagnosis: ACUTE CHOLECYSTICS S /P LAP CADY Secondary Diagnoses/Problems: (1) Abdominal aortic aneurysm Status: Chronic (2) Benign hypertension Status: Chronic (3) CKD (chronic kidney disease), stage III Status: Chronic (4) Coronary artery disease Permanent Comment: CABG 1990, PCI 2010, echo 07/16/13 LVEF 55-60%, neg nuclear stress 10/02/13 Status: Chronic (5) Diverticular disease of colon Status: Chronic (6) Diverticulitis Status: Resolved (7) Dyslipidemia Status: Chronic (8) Gout Status: Chronic (9) History of DVT of lower extremity Status: Chronic (10) Osteoarthritis Status: Chronic (11) Pacemaker Status: Chronic (12) Spinal stenosis of lumbar region Status: Chronic Procedures: CT ABD/PELVIS GALL BLADDER US S/P LAP CHOLECYSTECTOMY Consultations: SURGERY Medication Reconciliation Continued Medications: Allopurinol (Zyloprim) 300 Mg Tab 300 MG PO DAILY, TAB Aspirin (Aspirin Ec) 81 Mg Tab 81 MG PO // Cholecalciferol (Vitamin D 1000 Unit) 1,000 Unit Cap 2000 INTER.UNIT PO DAILY, CAP Furosemide (Lasix) 40 Mg Tab 20 MG PO DAILY, TAB Gabapentin (Neurontin) 300 Mg Cap 300 MG PO TID, CAP Ipratropium-Albuterol (Combivent Respimat) 1 Aer Aer 1 PUFFS INH QID, INH Isosorbide Mononitrate Ext Rel (Imdur Ext Rel) 60 Mg Ertab 60 MG PO QAM, TAB Metoprolol Succinate (Toprol Xl) 50 Mg Tabcr 25 MG PO HS Montelukast Sodium (Singulair) 10 Mg Tab 10 MG PO DAILY, TAB Prednisone (Prednisone) 5 Mg Tab 2.5 MG PO DAILY Ranitidine Hcl (Ranitidine Hcl) 150 Mg Cap 150 MG PO HS take on empty stomach Rosuvastatin Calcium (Crestor) 20 Mg Tab 40 MG PO HS Warfarin Sod (Jantoven) 2 Mg Tab 2 MG PO DAILY, TAB Admission Information HPI (per Admitting provider): This is a 76 year old male with PMH of CAD s/p stents, hx. of complete heart block s/p PPM, hx. of atrial fibrillation on anticoagulation, interstitial lung disease on chronic prednisone, HTN presents with severe epigastric and right upper quadrant abdominal pain that began at about 5PM on 09/06/16; after eating a meal; states that the pain was very severe; he tried to change positions for improvement, but it did not work; to the point where he had to come to the hospital; on the way to the hospital, he states that the pain started subsiding on its own; upon presentation to the ER, his pain had subsided completely; lab work showed an increase in his lipase, RUQ U/S was done; which showed probably acute cholecystitis. Patient feels much better currently, with no symptoms to note. Physical Exam (per Admitting): General Appearance: no apparent distress Head: normocephalic, atraumatic Eyes: normal inspection ENT: hearing grossly normal Neck: supple Respiratory/Chest: lungs clear, normal breath sounds, no respiratory distress, no accessory muscle use, + pertinent finding (+pacemaker, left chest wall) Cardiovascular: regular rate, rhythm, no edema, no murmur Abdomen/GI: normal bowel sounds, soft, + tenderness (mild tenderness to deep palpation) Extremities/Musculoskelatal: normal capillary refill, no pedal edema Neurologic/Psych: no motor/sensory deficits, alert, normal mood/affect Skin: normal color Lymphatic: no adenopathy Physical Exam (per Admitting): General Appearance: no apparent distress Head: normocephalic, atraumatic Eyes: normal inspection ENT: hearing grossly normal Neck: supple Respiratory/Chest: lungs clear, normal breath sounds, no respiratory distress, no accessory muscle use, + pertinent finding (+pacemaker, left chest wall) Cardiovascular: regular rate, rhythm, no edema, no murmur Abdomen/GI: normal bowel sounds, soft, + tenderness (mild tenderness to deep palpation) Extremities/Musculoskelatal: normal capillary refill, no pedal edema Neurologic/Psych: no motor/sensory deficits, alert, normal mood/affect Skin: normal color Lymphatic: no adenopathy Hospital Course This is a 76 year old male with PMH of CAD s/p stents, hx. of complete heart block s/p PPM, hx. of atrial fibrillation on anticoagulation, interstitial lung disease on chronic prednisone, HTN presents with severe epigastric and right upper quadrant abdominal pain Acute Gallstone Pancreatitis Acute Cholecystitis Most likely from a gallstone in the CBD; which now seems to have passed RUQ U/S- probably acute cholecystitis lipase > 5000 Presented with severe pain - relived now cardiology saw the patient for for pre op seen by surgery and s/p lap cholecystectomy tolerating full liquid diet SURGERY OK FOR DISCHARGE Hx. of Atrial Fibrillation s/p PPM held coumadin and one FFP given prior to surgery to hold anticoagulants for 48hrs as per surgery rates under control RESTARTED COUMADIN F/U WITH COUMADIN CLINIC CAD s/p stenting Stable on e b-emerson, statin Holding ASA for now secondary to poss. surgery RESTARTED ASPIRIN HTN BP controlled on metoprolol and Imdur. DISCHARGED Total time spent on discharge = 35MINUTES This includes examination of the patient, discharge planning, medication reconciliation, and communication with other providers. Discharge Instructions Please take this sheet to every appointment for the next month Discharge Instructions Admission Reason for Admission: Acute Gallstone Pancreatitis Discharge Discharge Diagnosis / Problem: gallstone pancreatitis Discharge Goals Goal(s): Decrease discomfort Activity Recommendations Activity Limitations: resume your previous activity Lifting Limitations: no more than 10 pounds (2 wks) Exercise/Sports Limitations: until after follow-up appointment May Resume Sexual Activity: after two weeks Shower/Bathe: tomorrow (remove dressings prior to shower, leave steristrips x 7 -10 days. OK to shower 24 hrs after surgery.) Driving or Machine Use: 3-5 days . Current Hospital Diet Patient's current hospital diet: Full Liquid Diet Discharge Diet Recommended Diet: Low Fat Diet Procedures Procedures Performed: Laparoscopic Cholecystectomy with Intraoperative Cholangiogram Pending Studies Studies pending at discharge: no Medical Emergencies . Who to Call and When: Medical Emergencies: If at any time you feel your situation is an emergency, please call 911 immediately. . Non-Emergent Contact Non-Emergency issues call your: Primary Care Provider Contact Number: call [phone] to schedule a 2 [address] postop appt with Dr Fadumo Denney . "Provider Documentation" section prepared by Fadumo Denney. VTE Core Measure Inpt VTE Proph given/why not?: SCD's <Electronically signed by Fadumo Denney MD> Signed: 09/08/16 0739 Signed: The status of this report is Signed * If report status is Draft, the document has not been finalized by the responsible provider. Addendum: 09/08/16 1649 Addendum: Buck Hooper MD on 09/08/16 @ 17:38 Discharge Inst - Addendum Addendum Notes: FOLLOWUP WITH FAMILY DOCTOR IN ONE WEEK FOLLOWUP WITH COUMADIN CLINIC IN 3-4 DAYS Addendum Provider:
== END 2016-09-08 18:30 | disposition home or self-care (01) | DRG 417 ==
LOC: ENRESERVTM → ENRESERVDT → CANRESERV → C.EDB 23:18 → C.MSN 09-07 04:39
PROVIDERS: ADMIT Family Medicine; ATTEND Internal Medicine
PROC: 0FT44ZZ Resection of Gallbladder, Percutaneous Endoscopic Approach (ICD-10-PCS; principal; 2016-09-07 07:30)
PROC: BF130ZZ Fluoroscopy of Gallbladder and Bile Ducts using High Osmolar Contrast (ICD-10-PCS; principal; 2016-09-07 07:30)
DX: K80.42 Calculus of bile duct with acute cholecystitis without obstruction (principal); K85.10 Biliary acute pancreatitis without necrosis or infection; J84.9 Interstitial pulmonary disease, unspecified; I48.1 Persistent atrial fibrillation; I25.10 Atherosclerotic heart disease of native coronary artery without angina pectoris; I12.9 Hypertensive chronic kidney disease with stage 1 through stage 4 chronic kidney disease, or unspecified chronic kidney disease; N18.3 Chronic kidney disease, stage 3 (moderate); E78.5 Hyperlipidemia, unspecified; M10.9 Gout, unspecified; I08.1 Rheumatic disorders of both mitral and tricuspid valves; I71.4 Abdominal aortic aneurysm, without rupture; E66.9 Obesity, unspecified; Z68.28 Body mass index [BMI] 28.0-28.9, adult; Z23 Encounter for immunization; Z98.1 Arthrodesis status; Z95.1 Presence of aortocoronary bypass graft; Z95.5 Presence of coronary angioplasty implant and graft; Z95.0 Presence of cardiac pacemaker; Z87.891 Personal history of nicotine dependence; Z86.718 Personal history of other venous thrombosis and embolism; Z79.01 Long term (current) use of anticoagulants; Z79.52 Long term (current) use of systemic steroids; Z79.82 Long term (current) use of aspirin; Z79.899 Other long term (current) drug therapy

== ENCOUNTER → 2017-06-01 | Outpatient (CLI) | payer OTHER ==
[~2017-06-01] MED LIST changes: +GABA-113 PO; -HYDR-5688 PO; -NRN300 PO; -NSNN50; -ULT50X PO
== END | disposition home or self-care (01) ==
LOC: C.PATHSPEC 11:36
PROVIDERS: ATTEND Ophthalmology
DX: H02.824 Cysts of left upper eyelid (principal)

== ENCOUNTER 2017-11-25 09:50 | Emergency (ER) | payer OTHER ==
[~2017-11-25] VITALS: Ht 182.9 cm; Wt 102.0 kg
[2017-11-25 09:58] VITALS: TEMP 36.4; Ht 182.9 cm; Wt 102.0 kg
[2017-11-25] MEDS ORDERED: WARF2TAB8 PO (10:28)
[2017-11-25] MEDS ORDERED: PRED-301 PO (10:28)
[2017-11-25] MEDS ORDERED: VNTHFA/IN INH (10:29)
[2017-11-25] MEDS ORDERED: OPTIRAY 320 IV PRN (10:30)
[2017-11-25] MEDS ORDERED: AZEL0.1S2 NAE (10:30)
[2017-11-25 10:47] LABS: INR 2.5 (0.9-1.1)
[2017-11-25 10:53] LABS: CALCIUM 8.9 mg/dl (8.5-10.1); CREATININE 1.33 mg/dl (0.60-1.40); POTASSIUM 3.7 mmol/L (3.5-5.1)
[2017-11-25 11:00] LABS: HEMATOCRIT 42.2 % (42-52); MEAN CELL VOLUME 89.4 fL (80-100); MEAN CORPUSCULAR HEMOGLOBIN 31.8 pg (25-34); MEAN CORPUSCULAR HGB CONC 35.5 g/dl (32-36); MEAN PLATELET VOLUME 10.5 fL (7.4-10.4); PLATELET COUNT 96 K/uL (130-400); RED CELL DISTRIBUTION WIDTH CV 15.2 % (11.5-14.5); RED CELL DISTRIBUTION WIDTH SD 49.7 fL (36.4-46.3); WHITE BLOOD COUNT 5.51 K/uL (4.8-10.8)
--- NOTE | 2017-11-25 11:25 | DIAGNOSTIC IMAGING REPORT ---
FACIAL-MAXILLOFACIAL WITH CLINICAL HISTORY: R eye w/ bruising around and large amount of subconjunctival hem pain. Edema. TECHNIQUE: Transaxial acquisition with multi axial reformatted images COMPARISON STUDY: None FINDINGS: Localize right periorbital edematous change. Edematous changes anterior to the orbital septum. No significant retro-orbital inflammatory change. Small density adjacent to the medial calf this most likely postoperative and less clinically indicated otherwise. Globes are symmetric. The underlying bony structures are intact. No evidence for abnormality of the orbital margins or associated maxillary region. IMPRESSION: 1. Nonspecific soft tissue edematous change anterior aspect right orbit. Globes intact. 2. 3 mm radiopaque density superior and medial to the right globe superior to the medial canthus. This may be postoperative and appears to been present on a prior CT of the brain 2013. Is considered nonacute. The above report was generated using voice recognition software. It may contain grammatical, syntax or spelling errors. Electronically signed by: Miki Reyes M.D. 11/25/2017 11:23 AM Dictated Date/Time: 11/25/2017 11:18 AM
[2017-11-25 11:32] LABS: BASO % 0.2 %; BASO ABS # 0.01 K/uL (0-0.2); EOS % 1.1 %; EOS ABS # 0.06 K/uL (0-0.5); IG# 0.02 K/uL (0.00-0.02); LYMPH % 27.9 %; LYMPH ABS # 1.54 K/uL (1.2-3.4); MONO % 6.7 %; MONO ABS # 0.37 K/uL (0.11-0.59); NEUT % 63.7 %; NEUT ABS # 3.51 K/uL (1.4-6.5)
[2017-11-25] MEDS ORDERED: ARTIOIN2 OP (12:46)
[2017-11-25 13:06] VITALS: BP 133/84; PULSE 88; O2SAT 95
--- NOTE | 2017-11-25 17:00 | EMERGENCY ROOM VISIT NOTE ---
History Report prepared by Scribe: Nena Self Under the Supervision of: Shabnam AhumadaO. First contact with patient: 10:01 Chief Complaint: EYE ASSESSMENT Stated Complaint: R EYE DISCOMFORT AND BLOODY History of Present Illness The patient is a 77 year old male who presents to the Emergency Room with complaints of worsening right eye discomfort. He states last night his right eye started to look red and feel itchy. This morning, he woke up and the area was ecchymotic and increasingly red and uncomfortable. He rates his discomfort as a 3/10 in severity. He denies any recent falls or trauma to his head or eyes. He notes he was near his wood stove yesterday and felt like something may have gotten in the eye at one point. The vision in his right eye is unchanged. The patient takes Coumadin for a history of atrial fibrillation. His last INR was around 4, approximately 2 weeks ago. Pt denies headache, fevers, chest pain , shortness of breath, nausea, vomiting, diarrhea, pain with urination, and melena. Source of History: patient Onset: last night Position: eye (right) Symptom Intensity: 3/10 Timing: worsening Associated Symptoms: No fevers, No headache, No chest pain, No SOB, No nausea, No vomiting, No melena, No diarrhea, No urinary symptoms Review of Systems See HPI for pertinent positives & negatives. A total of 10 systems reviewed and were otherwise negative. Past Medical & Surgical Medical Problems: (1) Abdominal aortic aneurysm (2) Acute gallstone pancreatitis (3) Benign hypertension (4) CKD (chronic kidney disease), stage III (5) Coronary artery disease (6) Diverticular disease of colon (7) Diverticulitis (8) Dyslipidemia (9) Gout (10) History of DVT of lower extremity (11) Osteoarthritis (12) Pacemaker (13) Spinal stenosis of lumbar region Surgical Problems: (1) Hx of decompressive lumbar laminectomy (2) Status post cardiac catheterization (3) Status post cardiac pacemaker procedure (4) Status post coronary artery bypass grafting (5) Status post coronary artery stent placement Family History FH: asthma FATHER FH: coronary artery disease FATHER BROTHER FH: pancreatic cancer MOTHER Social History Smoking Status: Never Smoker Alcohol Use: occasionally Drug Use: none Marital Status: , in relationship Housing Status: lives with significant other Occupation Status: retired Current/Historical Medications Scheduled Albuterol Hfa (Ventolin Hfa), 2-4 PUFFS INH Q4-6H Allopurinol (Zyloprim), 300 MG PO DAILY Artificial Tear Ointment (Refresh Lacri-Lube), 1 APPLN OP QID Aspirin (Aspirin Ec), 81 MG PO MWF Cholecalciferol (Vitamin D 1000 Unit), 2,000 INTER.UNIT PO DAILY Furosemide (Lasix), 20 MG PO DAILY Ipratropium-Albuterol (Combivent Respimat), 1 PUFFS INH QID Isosorbide Mononitrate Ext Rel (Imdur Ext Rel), 60 MG PO QAM Metoprolol Succinate (Toprol Xl), 50 MG PO HS Prednisone (Prednisone), 5 MG PO QAM Ranitidine Hcl (Ranitidine Hcl), 150 MG PO HS Rosuvastatin Calcium (Crestor), 20 MG PO HS Warfarin Sod (Jantoven), 2 MG PO 6XWK Warfarin Sod (Jantoven), 4 MG PO WK Scheduled PRN Azelastine HCl (Azelastine Hydrochloride), 1 SPRAY CHER UD PRN for PRN Allergies Coded Allergies: No Known Allergies (Verified , 11/25/17) Physical Exam Vital Signs Date Time Temp Pulse Resp B/P (MAP) Pulse Ox O2 Delivery O2 Flow Rate FiO2 11/25/17 13:06 88 133/84 95 11/25/17 09:58 36.4 87 20 143/83 95 Room Air Physical Exam GENERAL: Sitting up in bed, alert, well appearing, well nourished, no distress, non-toxic EYE EXAM: Diffuse subconjunctival hemorrhage, with right conjunctiva raised on medial aspect above the iris, iris is intact, right pupil is round and reactive to light, left pupil is oblique and non-reactive. FACE: Bruising along right inferior aspect of orbit. OROPHARYNX: no exudate, no erythema, lips, buccal mucosa, and tongue normal and mucous membranes are moist NECK: supple, no nuchal rigidity, no adenopathy, non-tender LUNGS: Clear to auscultation. Normal chest wall mechanics HEART: no murmurs, S1 normal and S2 normal ABDOMEN: abdomen soft, non-tender, normo-active bowel sounds, no masses, no rebound or guarding. UPPER EXTREMITIES: upper extremities are grossly normal. LOWER EXTREMITIES: No pitting edema. NEURO EXAM: Normal sensorium, cranial nerves II-XII grossly intact, normal speech, no gross weakness of arms, no gross weakness of legs. Gross sensation intact. Patient ambulates without difficulty. Medical Decision & Procedures ER Provider Diagnostic Interpretation: Slit Lamp Exam Anterior chamber is deep and quiet. No obvious abrasions, no sclera icterus. Surrounding large amount of subconjunctival hemorrhage and edema. IOP was unable to be obtained. Radiology results as stated below per my review and the radiologist's interpretation: FACIAL-MAXILLOFACIAL WITH CLINICAL HISTORY: R eye w/ bruising around and large amount of subconjunctival hem pain. Edema. TECHNIQUE: Transaxial acquisition with multi axial reformatted images COMPARISON STUDY: None FINDINGS: Localize right periorbital edematous change. Edematous changes anterior to the orbital septum. No significant retro-orbital inflammatory change. Small density adjacent to the medial calf this most likely postoperative and less clinically indicated otherwise. Globes are symmetric. The underlying bony structures are intact. No evidence for abnormality of the orbital margins or associated maxillary region. IMPRESSION: 1. Nonspecific soft tissue edematous change anterior aspect right orbit. Globes intact. 2. 3 mm radiopaque density superior and medial to the right globe superior to the medial canthus. This may be postoperative and appears to been present on a prior CT of the brain 2013. Is considered nonacute. The above report was generated using voice recognition software. It may contain grammatical, syntax or spelling errors. Electronically signed by: Miki Reyes M.D. 11/25/2017 11:23 AM Laboratory Results 11/25/17 10:30 Red Blood Count 4.72, Mean Corpuscular Volume 89.4, Mean Corpuscular Hemoglobin 31.8, Mean Corpuscular Hemoglobin Concent 35.5, Mean Platelet Volume 10.5, Neutrophils (%) (Auto) 63.7, Lymphocytes (%) (Auto) 27.9, Monocytes (%) (Auto) 6.7, Eosinophils (%) (Auto) 1.1, Basophils (%) (Auto) 0.2, Neutrophils # (Auto) 3.51, Lymphocytes # (Auto) 1.54, Monocytes # (Auto) 0.37, Eosinophils # (Auto) 0.06, Basophils # (Auto) 0.01 11/25/17 10:30 Test 11/25/17 10:30 White Blood Count 5.51 K/uL (4.8-10.8) Red Blood Count 4.72 M/uL (4.7-6.1) Hemoglobin 15.0 g/dL (14.0-18.0) Hematocrit 42.2 % (42-52) Mean Corpuscular Volume 89.4 fL (80-100) Mean Corpuscular Hemoglobin 31.8 pg (25-34) Mean Corpuscular Hemoglobin Concent 35.5 g/dl (32-36) Platelet Count 96 K/uL (130-400) Mean Platelet Volume 10.5 fL (7.4-10.4) Neutrophils (%) (Auto) 63.7 % Lymphocytes (%) (Auto) 27.9 % Monocytes (%) (Auto) 6.7 % Eosinophils (%) (Auto) 1.1 % Basophils (%) (Auto) 0.2 % Neutrophils # (Auto) 3.51 K/uL (1.4-6.5) Lymphocytes # (Auto) 1.54 K/uL (1.2-3.4) Monocytes # (Auto) 0.37 K/uL (0.11-0.59) Eosinophils # (Auto) 0.06 K/uL (0-0.5) Basophils # (Auto) 0.01 K/uL (0-0.2) RDW Standard Deviation 49.7 fL (36.4-46.3) RDW Coefficient of Variation 15.2 % (11.5-14.5) Immature Granulocyte % (Auto) 0.4 % Immature Granulocyte # (Auto) 0.02 K/uL (0.00-0.02) Red Blood Cell Morphology Unremarkable Prothrombin Time 25.9 SECONDS (9.0-12.0) Prothromb Time International Ratio 2.5 (0.9-1.1) Anion Gap 8.0 mmol/L (3-11) Est Creatinine Clear Calc Drug Dose 56.6 ml/min Estimated GFR () 58.9 Estimated GFR (Non- 50.8 BUN/Creatinine Ratio 18.2 (10-20) Calcium Level 8.9 mg/dl (8.5-10.1) Laboratory results per my review. ED Course ED COURSE: Vital signs were reviewed and showed normal vital signs. The patients medical record was reviewed The above diagnostic studies were performed and reviewed. ED treatments and interventions as stated above. 1004: The patient was evaluated in room B9. A complete history and physical examination was performed. 1245: I discussed the patients case with Dr. Bonilla, Ophthalmology. He states the patient can follow up in the office and continue his Coumadin. 1300: Upon reevaluation, the patient is resting comfortably. I discussed my findings with the patient and he understands and agrees with the treatment plan. Based on the patients age, coexisting illnesses, exam and lab findings the decision to treat as an outpatient was made. The patient remained stable while under my care. The patient appeared well at the time of discharge. Medical Decision Patient is a 77-year-old male presents the ER for right eye itchiness. He does take Coumadin for his A. fib. On exam he has a diffuse right sub-conjunctival hemorrhage. Iris and pupil is normal. No vision of the left eye which is old. CBC and BMP are unremarkable. INR is 2.5. Unable to obtain IOP and right eye as she cannot locate pupil. Slit lamp was unremarkable without corneal abrasions. Patient does continue to rub her eye throughout his stay which I instructed him on not doing. CT shows no obvious foreign bodies or retrobulbar hematoma. Discussed findings with ophthalmology. Patient will follow up early next week. Again he notes his vision has not changed in any way. Visual acuity was 20/50 in the right eye. He was discharged on eye ointment instructed to follow-up. Discussed with Pt concerning signs and symptoms to watch out for. Pt was instructed to follow up with their PCP and discussed with the patient their option to return to the ED at anytime for persistent or worsening symptoms. The appropriate anticipatory guidance and out-patient management, including indications for return to the emergency department, were explained at length to the patient and understood. Medication Reconcilliation Current Medication List: was personally reviewed by me Blood Pressure Screening Patient's blood pressure: Elevated blood pressure Blood pressure disposition: Elevated BP felt to be situational Consults Time Called: 1233 Consulting Physician: Dr. Bonilla, Ophthalmology Returned Call: 1245 I discussed the patients case with Dr. Bonilla, Ophthalmology. He states the patient can follow up in the office and continue his Coumadin. Impression Primary Impression: Subconjunctival hemorrhage Scribe Attestation The scribe's documentation has been prepared under my direction and personally reviewed by me in its entirety. I confirm that the note above accurately reflects all work, treatment, procedures, and medical decision making performed by me. Departure Information Dispostion Home / Self-Care Prescriptions Artificial Tear Ointment (Refresh Lacri-Lube) 1 Oin Oin 1 APPLN OP QID, #1 TUBE Prov: Kashmir Hicks, DO 11/25/17 Referrals No Doctor, Assigned (PCP) Patient Instructions My [facility], Subconjunctival Hemorrhage Additional Instructions Please follow up with your primary care doctor with in the next 24 hours. Any worsening of your symptoms, please return to the ED immediately. This includes change or loss of vision, eye pain, or any other concerning signs or symptoms from her standpoint. This includes any fevers greater than 100.4, worsening pain, chest pain, shortness breath, persistent nausea, vomiting, unable to eat or drink, or any other concerning signs or symptoms from your standpoint. Please apply eye ointment every 4-6 hours as needed to prevent your eye from drying out. Problem Qualifiers Primary Impression: Subconjunctival hemorrhage Laterality: right Qualified Codes: H11.31 - Conjunctival hemorrhage, right eye
== END 2017-11-25 13:07 | disposition home or self-care (01) ==
LOC: C.EDB 09:53
DX: H11.31 Conjunctival hemorrhage, right eye (principal); I48.91 Unspecified atrial fibrillation; Z79.01 Long term (current) use of anticoagulants; N18.3 Chronic kidney disease, stage 3 (moderate); I12.9 Hypertensive chronic kidney disease with stage 1 through stage 4 chronic kidney disease, or unspecified chronic kidney disease; I25.10 Atherosclerotic heart disease of native coronary artery without angina pectoris; E78.5 Hyperlipidemia, unspecified; M10.9 Gout, unspecified; Z86.718 Personal history of other venous thrombosis and embolism; M19.90 Unspecified osteoarthritis, unspecified site; Z95.0 Presence of cardiac pacemaker; M48.061 Spinal stenosis, lumbar region without neurogenic claudication; Z95.1 Presence of aortocoronary bypass graft; Z95.5 Presence of coronary angioplasty implant and graft; Z82.5 Family history of asthma and other chronic lower respiratory diseases; Z82.49 Family history of ischemic heart disease and other diseases of the circulatory system; Z80.8 Family history of malignant neoplasm of other organs or systems; Z79.82 Long term (current) use of aspirin; Z79.899 Other long term (current) drug therapy